=== PATIENT | male | born 1975 | race Hispanic/Latino ===

== ENCOUNTER 2020-07-26 08:09 | Emergency (ER) | payer OTHER ==
[2020-07-26 09:00] LABS: Absolute Lymphocytes (CBC) 1.7 K/uL (0.7-4.9); Basophils % 0.4 % (0-1.3); Hematocrit 43.6 % (39.6-49.0); Lymphocytes % 27.1 % (15.3-44.8); MPV 8.2 fL (7.6-11.3); RBC Red Blood Cell Count 4.56 M/uL (4.33-5.43)
[2020-07-26 09:01] LABS: Protime INR 0.89
--- NOTE | 2020-07-26 09:03 | RAD REPORT ---
EXAM DESCRIPTION: RAD - Chest Single View - 07/26/2020 8:40 am CLINICAL HISTORY: CHEST PAIN, recent COVID-19 diagnosis COMPARISON: None TECHNIQUE: AP portable chest image was obtained 07/26/2020 8:40 am . FINDINGS: No focal lung parenchymal process. No definitive evidence for COVID-19 pneumonia findings. Heart and vasculature are normal. No measurable pleural effusion and no pneumothorax. No acute bony abnormality seen. No acute aortic findings suspected. IMPRESSION: No acute cardiopulmonary process. No findings for COVID-19 pneumonia on this portable examination. If it would alter medical management , CT chest imaging could be performed for more sensitive assessment of the lung parenchyma.
[2020-07-26 09:35] LABS: ALT/SGPT 38 U/L (12-78); AST/SGOT 28 U/L (15-37); Albumin 3.8 g/dL (3.4-5.0); Alkaline Phosphatase 107 U/L (45-117); BUN Blood Urea Nitrogen 9 mg/dL (7-18); Bicarbonate 28 mmol/L (21-32); Bilirubin Direct < 0.1 mg/dL (0-0.2); Bilirubin Total 0.2 mg/dL (0.2-1.0); Glucose Level 163 mg/dL (74-106); NT PRO-BNP 11 pg/mL (<125); Potassium 3.8 mmol/L (3.5-5.1); Protein, Total 7.2 g/dL (6.4-8.2); Sodium Level 138 mmol/L (136-145); Troponin (Emerg Dept Use Only) < 0.02 ng/mL (0.0-0.045)
--- NOTE | 2020-07-26 09:41 | EDPHYS ---
Physician Documentation [facility] Name: Mir Pizarro Age: 45 yrs Sex: Male : 1975 Arrival Date: 07/26/2020 Time: 08:16 Bed 18 Private MD: ED Physician Jeremie Garcia HPI: 07/26 09:38 This 45 yrs old Male presents to ER via EMS with complaints of cough. ma2 09:38 The patient or guardian reports cough, difficulty breathing. Onset: The ma2 symptoms/episode began/occurred gradually, 2 day(s) ago. Severity of symptoms: At their worst the symptoms were moderate, in the emergency department the symptoms are unchanged. Associated signs and symptoms: Pertinent negatives: chest pain, diarrhea, fever, rhinorrhea, vomiting. The patient has not experienced similar symptoms in the past. Historical: - Allergies: 08:19 No Known Allergies; ss - Home Meds: 08:19 None [Active]; ss - PMHx: 08:19 None; ss - PSHx: 08:19 L knee repair; ss - Immunization history:: Adult Immunizations unknown. - Social history:: Smoking status: Patient denies any tobacco usage or history of. Patient/guardian denies using alcohol, street drugs, The patient lives with family. - Family history:: not pertinent. ROS: 09:38 Constitutional: Negative for fever, chills, and weight loss. ma2 09:38 All other systems are negative. Exam: 09:38 Constitutional: This is a well developed, well nourished patient who is awake, alert, ma2 and in no acute distress. Head/Face: Normocephalic, atraumatic. Eyes: Pupils equal round and reactive to light, extra-ocular motions intact. Lids and lashes normal. Conjunctiva and sclera are non-icteric and not injected. Cornea within normal limits. Periorbital areas with no swelling, redness, or edema. ENT: Nares patent. No nasal discharge, no septal abnormalities noted. Tympanic membranes are normal and external auditory canals are clear. Oropharynx with no redness, swelling, or masses, exudates, or evidence of obstruction, uvula midline. Mucous membranes moist. Neck: Trachea midline, no thyromegaly or masses palpated, and no cervical lymphadenopathy. Supple, full range of motion without nuchal rigidity, or vertebral point tenderness. No Meningismus. Chest/axilla: Normal chest wall appearance and motion. Nontender with no deformity. No lesions are appreciated. Cardiovascular: Regular rate and rhythm with a normal S1 and S2. No gallops, murmurs, or rubs. Normal PMI, no JVD. No pulse deficits. Respiratory: Lungs have equal breath sounds bilaterally, clear to auscultation and percussion. No rales, rhonchi or wheezes noted. No increased work of breathing, no retractions or nasal flaring. Abdomen/GI: Soft, non-tender, with normal bowel sounds. No distension or tympany. No guarding or rebound. No evidence of tenderness throughout. Back: No spinal tenderness. No costovertebral tenderness. Full range of motion. Skin: Warm, dry with normal turgor. Normal color with no rashes, no lesions, and no evidence of cellulitis. MS/ Extremity: Pulses equal, no cyanosis. Neurovascular intact. Full, normal range of motion. Neuro: Awake and alert, GCS 15, oriented to person, place, time, and situation. Cranial nerves II-XII grossly intact. Motor strength 5/5 in all extremities. Sensory grossly intact. Cerebellar exam normal. Normal gait. Vital Signs: 08:17 BP 170 / 92; Pulse 94; Resp 15; Temp 98.7(TE); Pulse Ox 100% on R/A; Height 5 ft. 3 in. ss (160.02 cm); Pain 0/10; MDM: 08:17 Patient medically screened. [facility] 09:38 Differential Diagnosis: Bronchitis Influenza Upper Respiratory Infection Sinusitis ma2 Pharyngitis. Data reviewed: vital signs, nurses notes, EMS record, EKG. Counseling: I had a detailed discussion with the patient and/or guardian regarding: the historical points, exam findings, and any diagnostic results supporting the discharge/admit diagnosis, the presence of at least one elevated blood pressure reading (>120/80) during this emergency department visit, the need for outpatient follow up. Response to treatment: the patient's symptoms have markedly improved after treatment. 07/26 08:18 Order name: Basic Metabolic Panel [facility] 07/26 08:18 Order name: CBC with Diff [facility] 07/26 08:18 Order name: LFT's 07/26 08:18 Order name: Magnesium ma2 07/26 08:18 Order name: NT PRO-BNP; Complete Time: 09:38 2 07/26 08:18 Order name: PT-INR; Complete Time: 09:24 07/26 08:18 Order name: Troponin (emerg Dept Use Only); Complete Time: 09:38 2 07/26 08:18 Order name: XRAY Chest (1 view); Complete Time: 09:24 2 07/26 08:18 Order name: EKG; Complete Time: 08:19 2 07/26 08:18 Order name: Cardiac monitoring; Complete Time: 08:44 ma2 07/26 08:18 Order name: Basic Metabolic Panel; Complete Time: 09:38 EDMS 07/26 08:18 Order name: CBC with Automated Diff; Complete Time: 09:24 EDMS 07/26 08:18 Order name: Liver (Hepatic) Function; Complete Time: 09:38 EDMS 07/26 08:18 Order name: Magnesium; Complete Time: 09:38 EDMS 07/26 08:18 Order name: EKG - Nurse/Tech; Complete Time: 08:44 2 07/26 08:18 Order name: IV Saline Lock; Complete Time: 08:44 2 07/26 08:18 Order name: Labs collected and sent; Complete Time: 08:44 07/26 08:18 Order name: O2 Per Protocol; Complete Time: 08:44 07/26 08:18 Order name: O2 Sat Monitoring; Complete Time: 08:44 ma2 Administered Medications: No medications were administered Disposition: 07/26/20 09:40 Discharged to Home. Impression: Coronavirus infection, unspecified. - Condition is Stable. - Discharge Instructions: Viral Respiratory Infection, Gugd-In-Pbyv, COVID-19. - Prescriptions for Zithromax Z- Tony 250 mg Oral Tablet - take 1 tablet by ORAL route as directed for 5 days Day 1 - take two (2) tablets one time. Day 2, 3, 4 , 5 take one (1) tablet once daily.; 6 tablet. Medrol (Tony) 4 mg Oral Tablets, Dose Pack - take 1 tablet by ORAL route as directed - follow package instructions; 1 packet. Albuterol Sulfate 90 mcg/actuation - inhale 1-2 puff by INHALATION route every 4-6 hours; 1 Inhaler. - Medication Reconciliation Form, Thank You Letter, Antibiotic Education, Prescription Opioid Use form. - Follow up: Private Physician; When: Tomorrow; Reason: If symptoms return, Continuance of care. Signatures: Dispatcher [employer] EDWI Stephanie Miller RN RN ss Jeremie Garcia MD MD ma2 Corrections: (The following items were deleted from the chart) 10:02 09:40 07/26/2020 09:40 Discharged to Home. Impression: Coronavirus infection, ss unspecified. Condition is Stable. Discharge Instructions: COVID-19. Prescriptions for Zithromax Z-Tony 250 mg Oral Tablet - take 1 tablet by ORAL route as directed for 5 days Day 1 - take two (2) tablets one time. Day 2, 3, 4 , 5 take one (1) tablet once daily.; 6 tablet, Medrol (Tony) 4 mg Oral Tablets, Dose Pack - take 1 tablet by ORAL route as directed - follow package instructions; 1 packet, Albuterol Sulfate 90 mcg/actuation - inhale 1-2 puff by INHALATION route every 4-6 hours; 1 Inhaler. and Forms are Medication Reconciliation Form, Thank You Letter, Antibiotic Education, Prescription Opioid Use. Follow up: Private Physician; When: Tomorrow; Reason: If symptoms return, Continuance of care. ma2
--- NOTE | 2020-07-26 09:41 | ER ---
Nurse's Notes [facility] Name: Mir Pizarro Age: 45 yrs Sex: Male : 1975 Arrival Date: 07/26/2020 Time: 08:16 Bed 18 Private MD: Diagnosis: Coronavirus infection, unspecified Presentation: 07/26 08:17 Chief complaint: Patient states: Woke up this morning feeling as if his heart was ss beating slow. Denies pain. Pt reports he was diagnosed with COVID-19 on 07/18/20. Coronavirus screen: Client denies travel out of the [place] in the last 14 days. Ebola Screen: Patient denies exposure to infectious person. Patient denies travel to an Ebola-affected area in the 21 days before illness onset. Initial Sepsis Screen: Does the patient meet any 2 criteria? No. Patient's initial sepsis screen is negative. Does the patient have a suspected source of infection? No. Patient's initial sepsis screen is negative. Risk Assessment: Do you want to hurt yourself or someone else? Patient reports no desire to harm self or others. Onset of symptoms was July 26, 2020. Care prior to arrival: Medication(s) given: ASA, 325 mg. 08:17 Method Of Arrival: EMS: [facility] ss 08:17 Acuity: QUOC 3 ss Historical: - Allergies: 08:19 No Known Allergies; ss - Home Meds: 08:19 None [Active]; ss - PMHx: 08:19 None; ss - PSHx: 08:19 L knee repair; ss - Immunization history:: Adult Immunizations unknown. - Social history:: Smoking status: Patient denies any tobacco usage or history of. Patient/guardian denies using alcohol, street drugs, The patient lives with family. - Family history:: not pertinent. Screenin:59 Abuse screen: Denies threats or abuse. Denies injuries from another. Nutritional ss screening: No deficits noted. Tuberculosis screening: Never had TB. Fall Risk None identified. Assessment: 09:59 Reassessment: Patient appears in no apparent distress at this time. Patient and/or ss family updated on plan of care and expected duration. Pain level reassessed. Patient is alert, oriented x 3, equal unlabored respirations, skin warm/dry/pink. Patient states feeling better. Patient states symptoms have improved. Vital Signs: 08:17 BP 170 / 92; Pulse 94; Resp 15; Temp 98.7(TE); Pulse Ox 100% on R/A; Height 5 ft. 3 in. ss (160.02 cm); Pain 0/10; ED Course: 08:16 Patient arrived in ED. 08:17 Jeremie Garcia MD is Attending Physician. ma2 08:18 Triage completed. 08:19 Arm band placed on right wrist. ss 08:39 XRAY Chest (1 view) In Process Unspecified. EDMS 08:44 Stephanie Miller, RN is Primary Nurse. 08:44 Inserted saline lock: 20 gauge in right antecubital area, using aseptic technique. Blood collected. 08:51 Patient has correct armband on for positive identification. Bed in low position. Call 5 light in reach. Side rails up X2. Warm blanket given. monitor worker on. Pulse ox on. NIBP on. 08:51 EKG done, by ED staff, reviewed by Jeremie Garcia MD. [facility] 09:49 IV discontinued, intact, bleeding controlled, No redness/swelling at site. Pressure em1 dressing applied. 09:59 No provider procedures requiring assistance completed. Administered Medications: No medications were administered Outcome: 09:40 Discharge ordered by . ma2 10:00 Discharged to home ambulatory. 10:00 Condition: good 10:00 Discharge instructions given to patient, Instructed on discharge instructions, follow up and referral plans. medication usage, Demonstrated understanding of instructions, follow-up care, medications, Prescriptions given X 2. 10:02 Patient left the ED. Signatures: Dispatcher [employer] Syed Dillon em1 Stephanie Miller, Raissa Hernandez RN 5 Jeremie Garcia MD MD ma2
[2020-07-26 10:08] VITALS: BP 170/92; TEMP 98.7; O2SAT 100
--- NOTE | 2020-07-26 12:40 | EKG ---
Test Date: 2020-07-26 Test Time: 08:28:03 [employer] Equipment Specialist: PURNIMA MEASUREMENT RESULTS: Intervals: Rate: 67 MD: 156 QRSD: 94 QT: 362 QTc: 382 [place]: P: 56 MD: 156 QRS: 65 T: 56 INTERPRETIVE STATEMENTS: Sinus rhythm with marked sinus arrhythmia Incomplete right bundle branch block Borderline ECG No previous ECG available for comparison Electronically Signed On 07-26-20 12:39:42 [employer] by Vishal Arce
== END 2020-07-26 10:02 | disposition home or self-care (01) ==
LOC: ER 08:09
DX: U07.1 COVID-19 (principal)
CPT/HCPCS: 36415; 71045; 80048; 80076; 83735; 83880; 84484; 85025; 85610; 93005; 99284

== ENCOUNTER 2021-12-23 21:57 | Emergency (ER) | payer OTHER ==
--- OUTSIDE RECORDS SUMMARY | 2021-12-23 22:02 | XMS REPORT | Continuity of Care Document ---
:[address] [facility] t Address [address] [place] [address] Care Team Providers Name Role Phone RADIOLOGY Attending Clinician Unavailable Pc, Adc Echo Room 1 - Attending Clinician Unavailable Latasha HERNANDEZ, K.H. Attending Clinician Doctor Unassigned, Name Attending Clinician Unavailable Sera PAGAN Attending Clinician Unavailable Payers Payer Name Policy Type Policy Number Effective Date Expiration Date S ource Problems This patient has no known problems. Allergies, Adverse Reactions, Alerts Allergy Allergy Status Severity Reaction(s) Onset Inactive Treating Comm ents Source Name Type Date Date Clinician NO KNOWN Drug Active Univers ALLERGIE Class ity of [facility] Social History Social Habit Start Date Stop Date Quantity Comments Source Exposure to Not sure [facility] SARS-CoV-2 (event) Medica l [place] Tobacco use and 2020-08-11 2020-08-11 Never used [facility] exposure 00:00:00 00:00:00 [facility] Sex [birth year] [facility] 00:00:00 00:00:00 [facility] Smoking Status Start Date Stop Date Source Never smoker [facility] Medications Ordered Filled Start Stop Current Ordering Indication Dosage Frequency Signature Comments Components Source Medication Medication Date Date Medication? Clinician (SIG) Name Name gemfibroziL Yes 600mg Take 600 U nivers 600 mg 2-12 mg by ity of tablet 00:00: mouth 2 [place] (two) Medical times Shell daily. gemfibroziL 2020-0 Yes 600mg Take 600 U nivers 600 mg 2-12 mg by ity of tablet 00:00: mouth 2 [place] (two) Medical times Shell daily. gemfibroziL 2020-0 Yes 600mg Take 600 U nivers 600 mg 2-12 mg by ity of tablet 00:00: mouth 2 (two) Medical times Branch daily. gemfibroziL 2021-0 Yes 600mg Take 600 U nivers 600 mg 2-12 mg by ity of tablet 00:00: mouth 2 (two) Medical times Branch daily. gemfibroziL 2021-0 Yes 600mg Take 600 U nivers 600 mg 2-12 mg by ity of tablet 00:00: mouth 2 (two) Medical times Branch daily. gemfibroziL 2021-0 Yes 600mg Take 600 U nivers 600 mg 2-12 mg by ity of tablet 00:00: mouth 2 (two) Medical times Branch daily. gemfibroziL 2021-0 Yes 600mg Take 600 U nivers 600 mg 2-12 mg by ity of tablet 00:00: mouth 2 [place] (two) Medical times Branch daily. gemfibroziL 2021-0 Yes 600mg Take 600 U nivers 600 mg 2-12 mg by ity of tablet 00:00: mouth 2 (two) Medical times Branch daily. albuterol 0 Yes INHALE 1 Univ ers 90 1-27 TO 2 PUFFS ity of mcg/actuati 00:00: EVERY 4 TO [place] on inhaler 00 6 HOURS Medica l Branch albuterol 0 Yes INHALE 1 Univ ers 90 1-27 TO 2 PUFFS ity of mcg/actuati 00:00: EVERY 4 TO [place] on inhaler 00 6 HOURS Medica l Branch albuterol 2020-0 Yes INHALE 1 Univ ers 90 1-27 TO 2 PUFFS ity of mcg/actuati 00:00: EVERY 4 TO [place] on inhaler 00 6 HOURS Medica l Branch albuterol 2020-0 Yes INHALE 1 Univ ers 90 1-27 TO 2 PUFFS ity of mcg/actuati 00:00: EVERY 4 TO [place] on inhaler 00 6 HOURS Medica l Branch albuterol 2020-0 Yes INHALE 1 Univ ers 90 1-27 TO 2 PUFFS ity of mcg/actuati 00:00: EVERY 4 TO [place] on inhaler 00 6 HOURS Medica l Branch albuterol 2020-0 Yes INHALE 1 Univ ers 90 1-27 TO 2 PUFFS ity of mcg/actuati 00:00: EVERY 4 TO [place] on inhaler 00 6 HOURS Medica l Branch albuterol 0 Yes INHALE 1 Univ ers 90 1-27 TO 2 PUFFS ity of mcg/actuati 00:00: EVERY 4 TO [place] on inhaler 00 6 HOURS Medica l Branch albuterol 0 Yes INHALE 1 Univ ers 90 1-27 TO 2 PUFFS ity of mcg/actuati 00:00: EVERY 4 TO [place] on inhaler 00 6 HOURS Medica l Branch albuterol 0 Yes INHALE 1 Univ ers 90 1-27 TO 2 PUFFS ity of mcg/actuati 00:00: EVERY 4 TO [place] on inhaler 00 6 HOURS Medica l Branch albuterol Yes INHALE 1 Univ ers 90 1-27 TO 2 PUFFS ity of mcg/actuati 00:00: EVERY 4 TO [place] on inhaler 00 6 HOURS Medica l Branch albuterol 0 Yes INHALE 1 Univ ers 90 1-27 TO 2 PUFFS ity of mcg/actuati 00:00: EVERY 4 TO [place] on inhaler 00 6 HOURS Medica l Branch albuterol 0 Yes INHALE 1 Univ ers 90 1-27 TO 2 PUFFS ity of mcg/actuati 00:00: EVERY 4 TO [place] on inhaler 00 6 HOURS Medica l Branch diclofenac 2017-0 Yes 75mg Take 1 Unive rs 75 mg EC 1-17 tablet by ity of tablet 00:00: mouth 2 [place] 00 (two) Medical times Branch daily with meals. diclofenac 2020- No 75mg Take 1 Univ ers 75 mg EC 117 -12 tablet by ity o f tablet 00:00: 00:00 mouth 2 [place] 00 :00 (two) Medical times Branch daily with meals. diclofenac 2017-2020- No 75mg Take 1 Univ ers 75 mg EC 1-17 -12 tablet by ity o f tablet 00:00: 00:00 mouth 2 [place] 00 :00 (two) Medical times Branch daily with meals. diclofenac 2017-2020- No 75mg Take 1 Univ ers 75 mg EC 1-17 -12 tablet by ity o f tablet 00:00: 00:00 mouth 2 [place] 00 :00 (two) Medical times Branch daily with meals. methylPREDN 2016-06 Yes 84mg Take 21 Uni vers ISolone 2-21 tablets by ity of (MEDROL, 00:00: mouth [place] JOAN,) 4 mg 00 SEE-INSTRU Med ical tablets CTIONS. Branch follow package directions methylPREDN 2016-06 No 84mg Take 21 Un chucho ISolone 2-21 02-12 tablets by ity o f (MEDROL, 00:00: 00:00 mouth [place] JOAN,) 4 mg 00 :00 SEE-INSTRU Med ical tablets CTIONS. Branch follow package directions methylPREDN 2016-06 No 84mg Take 21 Un chucho ISolone 2-21 02-12 tablets by ity o f (MEDROL, 00:00: 00:00 mouth [place] JOAN,) 4 mg 00 :00 SEE-INSTRU Med ical tablets CTIONS. Branch follow package directions methylPREDN 2016-06 No 84mg Take 21 Un chucho ISolone 2-21 02-12 tablets by ity o f (MEDROL, 00:00: 00:00 mouth [place] JOAN,) 4 mg 00 :00 SEE-INSTRU Med ical tablets CTIONS. Branch follow package directions acetaminoph 2016-06 Yes TAKE 1 TO U nivers en-codeine 1-08 2 TABLETS ity of 300-30 mg 00:00: EVERY 6 [place] tablet 00 HOURS Medical NEEDED FOR Branch PAIN acetaminoph 2016-06- No TAKE 1 TO Univers en-codeine 07-07-12 2 TABLETS ity of 300-30 mg 00:00: 00:00 EVERY 6 [place] tablet 00 :00 HOURS Medical NEEDED FOR Branch PAIN acetaminoph 2016-06- No TAKE 1 TO Univers en-codeine 07-07 2 TABLETS ity of 300-30 mg 00:00: 00:00 EVERY 6 [place] tablet 00 :00 HOURS Medical NEEDED FOR Branch PAIN acetaminoph 2016-06- No TAKE 1 TO Univers en-codeine 07-07- 2 TABLETS ity of 300-30 mg 00:00: 00:00 EVERY 6 [place] tablet 00 :00 HOURS Medical NEEDED FOR Branch PAIN meloxicam Yes TAKE 1 Univer s 7.5 mg 9-19 TABLET ity of tablet 00:00: EVERY DAY [place] 00 WITH FOOD Medical Branch meloxicam 2020- No TAKE 1 Unive rs 7.5 mg 03-18 TABLET ity of tablet 00:00: 00:00 EVERY DAY [place] 00 :00 WITH [facility] meloxicam 2020- No TAKE 1 Unive rs 7.5 mg 908-11 TABLET ity of tablet 00:00: 00:00 EVERY DAY [place] 00 :00 WITH [facility] meloxicam 2020- No TAKE 1 Unive rs 7.5 mg 03-18 TABLET ity of tablet 00:00: 00:00 EVERY DAY [place] 00 :00 WITH [facility] Vital Signs Vital Name Observation Time Observation Value Comments Source Systolic blood 2020-09-01 14:12:00 138 mm[Hg] Univer sity of [facility] Diastolic blood 2020-09-01 14:12:00 80 mm[Hg] Unive rsity of [facility] Heart rate 2020-09-01 14:12:00 55 /min Univers ty [facility] Body height 2020-09-01 14:12:00 165.1 cm Universi ty [facility] Body weight 2020-09-01 14:12:00 [facility] 2020-09-01 14:12:00 22.30 kg/m2 [facility] Systolic blood 2020-08-29 14:07:00 126 mm[Hg] Univer sity of [facility] Diastolic blood 2020-08-29 14:07:00 84 mm[Hg] Unive rsity of [facility] Body height 2020-08-29 14:07:00 165.1 cm Universi ty [facility] Body weight 2020-08-29 14:07:00 60.782 kg Univers ty [facility] BMI 2020-08-29 14:07:00 22.30 [facility] Systolic blood 2020-08-11 15:46:00 133 mm[Hg] Univer sity of [facility] Diastolic blood 2020-08-11 15:46:00 84 mm[Hg] Unive rsity of [facility] Heart rate 2020-08-11 15:46:00 81 /min [facility] Respiratory rate 2020-08-11 15:46:00 19 /min [facility] Body height 2020-08-11 15:46:00 165.1 cm [facility] Body weight 2020-08-11 15:46:00 60.782 kg [facility] BMI 2020-08-11 15:46:00 22.30 kg/m2 [facility] Oxygen saturation in 2020-08-11 15:46:00 99 /min [facility] Arterial blood by [facility] Pulse oximetry Branch Procedures Procedure Date / Time Performed Performing Clinician Sour e DISCLOSURE AND 2020-08-29 06:01:00 Doctor Unassigned, No Univer [facility] CONSENT, MEDICAL AND Name Medical [facility] SURGICAL PROCEDURES EXTERNAL PROVIDER - 2020-08-21 06:01:00 Doctor Unassigned, No Un iversity of [facility] CARDIOLOGY Name Medical Branch ME ELECTROCARDIOGRAM, 2020-08-11 15:50:15 [facility]REFUSAL FOR 2020-08-11 14:58:15 Doctor Unassigned, No [facility] [place] DIAGNOSIS AND Name Medical Branch TREATMENT Encounters Start End Encounter Admission Attending Care Care Encounter Source Date/Time Date/Time Type Type Clinicians Facility Department ID 2021-04-06 2021-04-06 Outpatient R RADIOLOGY [facility] [id number] Univers 14:30:00 14:30:00 [id number] ity [facility] 2020-09-01 2020-09-01 Laboratory Pc, Adc Echo Room 1 - [facility] [id number] Univers 08:03:58 09:03:58 Only Mark Pagan [place] [id number] [facility] [place] [id number] Jacob Mcleod [phone] Ia dical [facility] 059 Branch [facility] 2020-09-01 2020-09-01 Outpatient R [facility] [id number] Univers 08:00:00 08:00:00 [id number] ity [facility] 2020-09-01 2020-09-01 Outpatient R [facility] [id number] Univers 08:00:00 08:00:00 ity of [facility] 2020-08-30 2020-08-30 Telephone Pagan [facility] [id number] Univers 00:00:00 00:00:00 Mark [place] [id number] ity of [id number] [phone] Ia dical nal [address] [place] [address] 2020-08-29 2020-08-29 Laboratory Pc, Adc Echo Room 1 - [facility] [id number] Univers 07:58:40 08:57:34 Only Mark Pagan [id number] ity of [id number] [phone] Ia dical nal [address] [place] [address] 2020-08-29 2020-08-29 Outpatient R [facility] [id number] Univers 08:00:00 08:00:00 [id number] ity of [facility] 2020-08-29 2020-08-29 Outpatient R [facility] [id number] Univers 08:00:00 08:00:00 ity of [facility] 2020-08-29 2020-08-29 Orders Doctor KEANE [id number] Univers 00:00:00 00:00:00 Only Unassigned, MAURO [id number] ity of [facility] [id number] Ayo as [phone] [address] 2020-08-28 2020-08-28 Outpatient R [facility] [id number] Univers 08:00:00 08:00:00 [id number] ity of [facility] 2020-08-28 2020-08-28 Outpatient R [facility] [id number] Univers 08:00:00 08:00:00 ity of [facility] 2020-08-21 2020-08-21 Orders Doctor LAKHWINDER [id number] Univers 00:00:00 00:00:00 Only Unassigned, MAURO [id number] ity of [facility] [id number] Ayo as [phone] [facility] 009 [place] 2020-08-11 2020-08-11 Office Latasha [facility] [id number] Univers 08:58:45 10:09:51 Visit Sendil Sera [place] [id number] ity of [id number] [phone] Ia dical [facility] 2020-08-11 2020-08-11 Outpatient R LATASHA [facility] [id number] Univers 09:30:00 09:30:00 SENDIL [id number] ity [facility] 2020-08-11 2020-08-11 Outpatient R LATASHA [facility] [id number] Univers 09:30:00 09:30:00 SENDIL ity [facility] 2020-08-11 2020-08-11 Orders Doctor KEANE [id number] Univers 00:00:00 00:00:00 Only Unassigned, MAURO [id number] ity of [facility] [id number] Ayo as [phone] [address] Results This patient has no known results.
[2021-12-24 01:15] LABS: Urine Blood Negative (Negative); Urine Glucose Negative (Negative); Urine Protein Negative (Negative)
--- NOTE | 2021-12-24 05:09 | ER ---
Nurse's Notes [facility] Name: Mir Pizarro Age: 46 yrs Sex: Male : 1975 Arrival Date: 12/23/2021 Time: 22:02 Bed 9 Private MD: Diagnosis: Low back pain-Strain;Viral syndrome Presentation: 12/23 22:47 Chief complaint: Patient states: "I have pain in my mid backs. I was tested for covid vc1 at [facility] and it said negative they gave me an antibiotic for a sore throat. My throat still hurts.". Coronavirus screen: Vaccine status: Patient reports receiving the 2nd dose of the covid vaccine. Moderna cough unrelated to allergies, fatigue, fever, muscle pain, runny nose, sore throat, Client presents with at least one sign or symptom that may indicate coronavirus-19. Standard/surgical mask placed on the client. Provider contacted for isolation considerations. Ebola Screen: No symptoms or risks identified at this time. Initial Sepsis Screen: Does the patient meet any 2 criteria? No. Patient's initial sepsis screen is negative. Does the patient have a suspected source of infection? No. Patient's initial sepsis screen is negative. Risk Assessment: Do you want to hurt yourself or someone else? Patient reports no desire to harm self or others. Onset of symptoms is unknown. 22:47 Method Of Arrival: Ambulatory vc1 22:47 Acuity: QUOC 4 vc1 Triage Assessment: 22:51 General: Appears in no apparent distress. uncomfortable, ill, Behavior is calm, vc1 cooperative, appropriate for age. Pain: Complains of pain in back Pain does not radiate. Pain currently is 3 out of 10 on a pain scale. at worst was 6 out of 10 on a pain scale. Neuro: Level of Consciousness is awake, alert, obeys commands, Oriented to person, place, time, situation, Appropriate for age. Cardiovascular: No deficits noted. Respiratory: Reports cough that is productive, Airway is patent Respiratory effort is even, unlabored, Respiratory pattern is regular, symmetrical. GI: No deficits noted. : No deficits noted. Derm: No deficits noted. Musculoskeletal: Circulation, motion, and sensation intact. Capillary refill Range of motion: intact in all extremities. Historical: - Allergies: 22:51 No Known Allergies; vc1 - PMHx: 22:51 None; vc1 - PSHx: 22:51 None; vc1 - Immunization history:: Adult Immunizations up to date, Client reports receiving the 2nd dose of the Covid vaccine. - Social history:: Smoking status: Patient denies any tobacco usage or history of. Screenin/27 03:11 Abuse screen: Denies threats or abuse. Nutritional screening: No deficits noted. bb Tuberculosis screening: No symptoms or risk factors identified. Fall Risk None identified. Assessment: 03:11 General: Appears in no apparent distress. slender, Behavior is calm, cooperative. Pain: bb Complains of pain in back. Neuro: Level of Consciousness is awake, alert, obeys commands, Oriented to person, place, time, situation. Cardiovascular: Capillary refill < 3 seconds Patient's skin is warm and dry. Respiratory: Respiratory effort is even, unlabored, Respiratory pattern is regular. GI: Derm: Skin is pink, warm \\T\\ dry. Musculoskeletal: Circulation, motion, and sensation intact. Reports pain in back. Vital Signs: 12/23 22:47 BP 167 / 92; Pulse 87; Resp 18; Temp 98.7; Pulse Ox 100% ; Weight 58.97 kg; Height 5 vc1 ft. 7 in. (170.18 cm); Pain 2/10; 22:47 Body Mass Index 20.36 (58.97 kg, 170.18 cm) vc1 ED Course: 22:02 Patient arrived in ED. bp1 22:51 Triage completed. vc1 22:53 Arm band placed on left wrist. vc1 22:55 Influenza Screen (A Sent. zm 22:55 Strep Sent. zm 22:55 Flu Sent. zm 23:00 COVID-19 SARS RT PCR (Document "Date of Onset" if Symptomatic) Sent. zm 12/24 00:54 Jaret Cardoso MD is Attending Physician. mh7 01:14 Urine collected: clean catch specimen, clear, COVID swab sent to lab. Flu and/or RSV mh5 swab sent to lab. 02:05 Chest Single View XRAY In Process Unspecified. EDMS 02:17 CT Lumbar Spine Wo Con In Process Unspecified. EDMS 02:53 Joy Pantoja, KHLOE is Primary Nurse. bb 03:11 Patient has correct armband on for positive identification. Call light in reach. bb 05:14 No provider procedures requiring assistance completed. Patient did not have IV access vc1 during this emergency room visit. Administered Medications: No medications were administered Medication: 05:15 VIS not applicable for this client. vc1 Outcome: 05:08 Discharge ordered by . jf 05:15 Discharged to home ambulatory. vc1 05:15 Condition: good 05:15 Discharge instructions given to patient, Instructed on discharge instructions, follow up and referral plans. medication usage, Demonstrated understanding of instructions, follow-up care, medications, Prescriptions given X 2. 05:16 Patient left the ED. vc1 Signatures: Dispatcher [employer] EDMS Joy Pantoja RN RN bb Raissa Perry 5 Gloria Campoverde Maurice, MD MD mh7 Corrine Keating RN RN vc1 Danni Perry
--- NOTE | 2021-12-24 05:09 | EDPHYS ---
Physician Documentation [facility] Name: Mir Pizarro Age: 46 yrs Sex: Male : 1975 Arrival Date: 12/23/2021 Time: 22:02 Bed 9 Private MD: ED Physician Jaret Cardoso HPI: 12/24 01:25 This 46 yrs old Male presents to ER via Ambulatory with complaints of Back mh7 Pain. 01:25 The patient presents with pain that is acute. The symptoms are located in the low back. mh7 01:25 Onset: The symptoms/episode began/occurred yesterday. mh7 01:25 The pain does not radiate. Associated signs and symptoms: Pertinent negatives: mh7 abdominal pain, chest pain, constipation, dysuria, fever, headache, hematuria, incontinence, nausea, numbness, tingling, urinary retention, vomiting, weakness. The problem was sustained when bending over, when lifting heavy object. Modifying factors: The patient symptoms are alleviated by nothing, the patient symptoms are aggravated by movement, walking. Severity of symptoms: At their worst the symptoms were moderate, yesterday, in the emergency department the symptoms have improved, moderately. Also complains of sore throat for the 4-5 days. States that he was seen at an urgent care 2 days ago and tested negative for COVID and was started on an antibiotic for his throat.. Historical: - Allergies: 12/23 22:51 No Known Allergies; vc1 - PMHx: 22:51 None; vc1 - PSHx: 22:51 None; vc1 - Immunization history:: Adult Immunizations up to date, Client reports receiving the 2nd dose of the Covid vaccine. - Social history:: Smoking status: Patient denies any tobacco usage or history of. ROS: 12/24 01:25 Constitutional: Negative for fever, chills, and weight loss, Eyes: Negative for injury, mh7 pain, redness, and discharge, Neck: Negative for injury, pain, and swelling, Cardiovascular: Negative for chest pain, palpitations, and edema, Respiratory: Negative for shortness of breath, cough, wheezing, and pleuritic chest pain, Abdomen/GI: Negative for abdominal pain, nausea, vomiting, diarrhea, and constipation, : Negative for injury, bleeding, discharge, and swelling, MS/Extremity: Negative for injury and deformity, Skin: Negative for injury, rash, and discoloration, Neuro: Negative for headache, weakness, numbness, tingling, and seizure, Psych: Negative for depression, anxiety, suicide ideation, homicidal ideation, and hallucinations, Allergy/Immunology: Negative for hives, rash, and allergies, Endocrine: Negative for neck swelling, polydipsia, polyuria, polyphagia, and marked weight changes, Hematologic/Lymphatic: Negative for swollen nodes, abnormal bleeding, and unusual bruising. Exam: 01:25 Constitutional: This is a well developed, well nourished patient who is awake, alert, mh7 and in no acute distress. Head/Face: Normocephalic, atraumatic. Eyes: Pupils equal round and reactive to light, extra-ocular motions intact. Lids and lashes normal. Conjunctiva and sclera are non-icteric and not injected. Cornea within normal limits. Periorbital areas with no swelling, redness, or edema. Neck: Trachea midline, no thyromegaly or masses palpated, and no cervical lymphadenopathy. Supple, full range of motion without nuchal rigidity, or vertebral point tenderness. No Meningismus. Chest/axilla: Normal chest wall appearance and motion. Nontender with no deformity. No lesions are appreciated. Cardiovascular: Regular rate and rhythm with a normal S1 and S2. No gallops, murmurs, or rubs. Normal PMI, no JVD. No pulse deficits. Respiratory: Lungs have equal breath sounds bilaterally, clear to auscultation and percussion. No rales, rhonchi or wheezes noted. No increased work of breathing, no retractions or nasal flaring. Abdomen/GI: Soft, non-tender, with normal bowel sounds. No distension or tympany. No guarding or rebound. No evidence of tenderness throughout. Skin: Warm, dry with normal turgor. Normal color with no rashes, no lesions, and no evidence of cellulitis. MS/ Extremity: Pulses equal, no cyanosis. Neurovascular intact. Full, normal range of motion. Neuro: Awake and alert, GCS 15, oriented to person, place, time, and situation. Cranial nerves II-XII grossly intact. Motor strength 5/5 in all extremities. Sensory grossly intact. Cerebellar exam normal. Normal gait. Psych: Awake, alert, with orientation to person, place and time. Behavior, mood, and affect are within normal limits. 01:25 Back: pain, that is moderate, of the lumbar area, left low back and right low back, ROM is painful, with rotation to the right, with rotation to the left, normal spinal alignment noted, CVA tenderness, is absent, vertebral tenderness, is not appreciated, muscle spasm, is appreciated in the lumbar area, left low back and right low back, Straight leg raises: of both lower extremities does not illicit pain. Vital Signs: 12/23 22:47 BP 167 / 92; Pulse 87; Resp 18; Temp 98.7; Pulse Ox 100% ; Weight 58.97 kg; Height 5 vc1 ft. 7 in. (170.18 cm); Pain 210; 22:47 Body Mass Index 20.36 (58.97 kg, 170.18 cm) vc1 MDM: 12/24 05:05 Differential diagnosis: arthritis, Fatigue Fracture Osteoarthritis Pyelonephritis mh7 sprain, vertebral fracture. Data reviewed: vital signs, nurses notes, lab test result(s), Flu: negative radiologic studies, CT scan, plain films. Data interpreted: Pulse oximetry: on room air is 100 %. Interpretation: normal. Counseling: I had a detailed discussion with the patient and/or guardian regarding: the historical points, exam findings, and any diagnostic results supporting the discharge/admit diagnosis, the presence of at least one elevated blood pressure reading (>120/80) during this emergency department visit, lab results, radiology results, the need for outpatient follow up, to return to the emergency department if symptoms worsen or persist or if there are any questions or concerns that arise at home. Response to treatment: the patient's symptoms have markedly improved after treatment. 05:08 Patient medically screened. [facility] 12/23 22:53 Order name: Flu; Complete Time: 00:58 [facility] 12/23 22:53 Order name: Strep; Complete Time: 00:58 [facility] 12/23 22:55 Order name: Influenza Screen (A ; Complete Time: 00:58 [facility] 12/23 22:56 Order name: COVID-19 SARS RT PCR (Document "Date of Onset" if Symptomatic) [facility] 12/23 23:56 Order name: Throat Culture [facility] 12/24 01:15 Order name: Urine Dipstick-Ancillary; Complete Time: 01:43 [facility] 12/24 01:44 Order name: CT Lumbar Spine Wo Con [facility] 12/24 01:44 Order name: Chest Single View XRAY [facility] Administered Medications: No medications were administered Disposition Summary: 12/24/21 05:08 Discharge Ordered Location: Home [facility] Problem: new [facility] Symptoms: have improved [facility] Condition: Stable [facility] Diagnosis - Low back pain - Strain [facility] - Viral syndrome [facility] Followup: [facility] - With: Private Physician - When: 1 - 2 days - Reason: Worsening of condition, Recheck today's complaints, Continuance of care, Re-evaluation by your physician Discharge Instructions: - Discharge Summary Sheet [facility] - Acute Back Pain, Adult [facility] - Musculoskeletal Pain [facility] - Back Injury Prevention, [id number] [facility] - Viral Illness, Adult [facility] Forms: - Medication Reconciliation Form [facility] - Thank You Letter [facility] - Antibiotic Education [facility] - Prescription Opioid Use [facility] Prescriptions: - Cyclobenzaprine 10 mg Oral Tablet - take 1 tablet by ORAL route every 8 hours As needed; 30 tablet; Refills: 0, [facility] Product Selection Permitted - Diclofenac Sodium 75 mg Oral Tablet Sustained Release - take 1 tablet by ORAL route 2 times per day; 30 tablet; Refills: 0, Product [facility] Selection Permitted Signatures: Dispatcher [employer] Jaret Portillo MD MD [facility] Corrine Keating RN RN vc1
[2021-12-24 05:21] VITALS: BP 167/92; TEMP 98.7; O2SAT 100
--- NOTE | 2021-12-24 20:27 | RAD REPORT ---
EXAM DESCRIPTION: RAD - Chest Single View - 12/24/2021 2:03 am CLINICAL HISTORY: 46 years Male, COUGH COMPARISON: None. TECHNIQUE: Single portable x-ray view of the chest performed on 12/24/2021 at 1:55 AM FINDINGS: The lungs are well expanded and are clear. There is no evidence of a pneumothorax. The cardiac silhouette is normal in size and configuration. The mediastinal contours are normal. No acute osseous abnormality is identified. No acute soft tissue abnormalities are seen. Lines and tubes: None. Free air: None IMPRESSION: No evidence of acute intrathoracic disease. Electronically signed by: Liseth Moreno DO 12/24/2021 3:12 AM CDT Due to temporary technical issues with the PACS/Fluency reporting system, reports are being signed by the in house radiologists without. review as a courtesy to insure prompt reporting. The interpreting radiologist is fully responsible for the content of the report
--- NOTE | 2021-12-24 20:28 | RAD REPORT ---
EXAM DESCRIPTION: CT - Spine Lumbar Wo Con - 12/24/2021 6:22 am CLINICAL HISTORY: Low back pain, no red flags, no prior management COMPARISON: None. TECHNIQUE: CT LUMBAR SPINE WITHOUT IV CONTRAST on 12/24/2021 1:44 AM CDT This exam was performed according to our departmental dose-optimization program, which includes autom ated exposure control, adjustment of the mA and/or kV according to patient size and/or use of iterati ve reconstruction technique. FINDINGS: There is no acute fracture. Vertebral body heights are preserved. Alignment is anatomic. Disc spaces are maintained. Soft tissues are unremarkable. IMPRESSION: No acute fracture or subluxation. Electronically signed by: Buck Alvarez MD 12/24/2021 3:16 AM CDT Due to temporary technical issues with the PACS/Fluency reporting system, reports are being signed by the in house radiologists without. review as a courtesy to insure prompt reporting. The interpreting radiologist is fully responsible for the content of the report
== END 2021-12-24 05:16 | disposition home or self-care (01) ==
LOC: ER 21:57
DX: S39.012A Strain of muscle, fascia and tendon of lower back, initial encounter (principal); B34.9 Viral infection, unspecified; Z20.822 Contact with and (suspected) exposure to COVID-19
CPT/HCPCS: 87070; 87081; 81003; 87804 ×2; 72131; 71045; U0003; 99283

== ENCOUNTER 2023-07-24 15:28 | Inpatient (IN) | payer OTHER ==
--- OUTSIDE RECORDS SUMMARY | 2023-07-24 15:31 | XMS REPORT | Continuity of Care Document ---
Author Name Unknown Address [address] [place] [address] [facility] Address [address] [place] [address] Care Team Providers Care Medical Donation Professional Name Role Phone Pc, Adc Echo Room 1 - Attending Clinician Cate Pagan MD, [facility] Attending Clinician Doctor Unassigned, [place] Attending Clinician MARK Fernando.HAshley Attending Clinician Unavaila ble Payers Payer Name Policy Type Policy Number Effective Date Expirati on Date Source Allergies, Adverse Reactions, Alerts Allergy Name Allergy Type Status Severity Reaction(s) Onset Date Inactive Date Treating Clinician Comments Source NO KNOWN ALLERGIE S Drug Class Active [facility] Social History Social Habit Start Date Stop Date Quantity Comments Source Exposure to SARS-CoV-2 (event) Not sure [facility] Tobacco use and exposure 2020-08-11 00:00:00 2020-08-11 00:00:00 Never used [facility] Sex Assigned At 1975 00:00:00 1975 00:00:00 [facility] Smoking Status Start Date Stop Date Source Never smoker [facility] Medications Ordered Medication Name Filled Medication Name Start Date Stop Date Current Medication? Ordering Clinician Indication Dosage Frequency Signature (SIG) Comments Components Source gemfibroziL 600 mg tablet 08-11 00:00: 00 Yes 600mg Take 600 mg by mouth 2 (two) times daily. [facility] gemfibroziL 600 mg tablet 08-11 00:00: 00 Yes 600mg Take 600 mg by mouth 2 (two) times daily. [facility] tablet 0 2-12 00:00: 00 Yes 600mg Take 600 mg by mouth 2 (two) times daily. [facility] gemfibroziL 600 mg tablet 2-12 00:00: 00 Yes 600mg Take 600 mg by mouth 2 (two) times daily. [facility] gemfibroziL 600 mg tablet 2-12 00:00: 00 Yes 600mg Take 600 mg by mouth 2 (two) times daily. [facility] gemfibroziL 600 mg tablet 2 00:00: 00 Yes 600mg Take 600 mg by mouth 2 (two) times daily. [facility] gemfibroziL 600 mg tablet 08-11 00:00: 00 Yes 600mg Take 600 mg by mouth 2 (two) times daily. [facility] gemfibroziL 600 mg tablet 08-11 00:00: 00 Yes 600mg Take 600 mg by mouth 2 (two) times daily. [facility] albuterol 90 mcg/actuati on inhaler 07-26 00:00: 00 Yes INHALE 1 TO 2 PUFFS EVERY 4 TO 6 HOURS [facility] albuterol 90 mcg/actuati on inhaler 07-26 00:00: 00 Yes INHALE 1 TO 2 PUFFS EVERY 4 TO 6 HOURS [facility] albuterol 90 mcg/actuati on inhaler 07-26 00:00: 00 Yes INHALE 1 TO 2 PUFFS EVERY 4 TO 6 HOURS [facility] albuterol 90 mcg/actuati on inhaler 07-26 00:00: 00 Yes INHALE 1 TO 2 PUFFS EVERY 4 TO 6 HOURS [facility] albuterol 90 mcg/actuati on inhaler 07-26 00:00: 00 Yes INHALE 1 TO 2 PUFFS EVERY 4 TO 6 HOURS [facility] albuterol 90 mcg/actuati on inhaler 07-26 00:00: 00 Yes INHALE 1 TO 2 PUFFS EVERY 4 TO 6 HOURS [facility] albuterol 90 mcg/actuati on inhaler 07-26 00:00: 00 Yes INHALE 1 TO 2 PUFFS EVERY 4 TO 6 HOURS [facility] albuterol 90 mcg/actuati on inhaler 07-26 00:00: 00 Yes INHALE 1 TO 2 PUFFS EVERY 4 TO 6 HOURS [facility] albuterol 90 mcg/actuati on inhaler 07-26 00:00: 00 Yes INHALE 1 TO 2 PUFFS EVERY 4 TO 6 HOURS [facility] albuterol 90 mcg/actuati on inhaler 07-26 00:00: 00 Yes INHALE 1 TO 2 PUFFS EVERY 4 TO 6 HOURS [facility] albuterol 90 mcg/actuati on inhaler 07-26 00:00: 00 Yes INHALE 1 TO 2 PUFFS EVERY 4 TO 6 HOURS [facility] albuterol 90 mcg/actuati on inhaler 07-26 00:00: 00 Yes INHALE 1 TO 2 PUFFS EVERY 4 TO 6 HOURS [facility] diclofenac 75 mg EC tablet 07-16 00:00: 00 Yes 75mg Take 1 tablet by mouth 2 (two) times daily with meals. [facility] diclofenac 75 mg EC tablet 07-16 00:00: 00 08-11 00:00 :00 No 75mg Take 1 tablet by mouth 2 (two) times daily with meals. [facility] diclofenac 75 mg EC tablet 07-16 00:00: 00 08-11 00:00 :00 No 75mg Take 1 tablet by mouth 2 (two) times daily with meals. [facility] diclofenac 75 mg EC tablet 07-16 00:00: 00 08-11 00:00 :00 No 75mg Take 1 tablet by mouth 2 (two) times daily with meals. [facility] methylPREDN ISolone (MEDROL, JOAN,) 4 mg tablets 2016-06 2 00:00: 00 Yes 84mg Take 21 tablets by mouth SEE-INSTRU CTIONS. follow package directions [facility] methylPREDN ISolone (MEDROL, JOAN,) 4 mg tablets 2016-06 00:00: 00 08-11 00:00 :00 No 84mg Take 21 tablets by mouth SEE-INSTRU CTIONS. follow package directions [facility] methylPREDN ISolone (MEDROL, JOAN,) 4 mg tablets 2016-06 00:00: 00 08-11 00:00 :00 No 84mg Take 21 tablets by mouth SEE-INSTRU CTIONS. follow package directions [facility] methylPREDN ISolone (MEDROL, JOAN,) 4 mg tablets 2016-06 00:00: 00 08-11 00:00 :00 No 84mg Take 21 tablets by mouth SEE-INSTRU CTIONS. follow package directions [facility] acetaminoph en-codeine 300-30 mg tablet 2016-06 00:00: 00 Yes TAKE 1 TO 2 TABLETS EVERY 6 HOURS NEEDED FOR PAIN [facility] acetaminoph en-codeine 300-30 mg tablet 2016-06 00:00: 00 08-11 00:00 :00 No TAKE 1 TO 2 TABLETS EVERY 6 HOURS NEEDED FOR PAIN [facility] acetaminoph en-codeine 300-30 mg tablet 2016-06 00:00: 00 08-11 00:00 :00 No TAKE 1 TO 2 TABLETS EVERY 6 HOURS NEEDED FOR PAIN [facility] acetaminoph en-codeine 300-30 mg tablet 2016-06 00:00: 00 08-11 00:00 :00 No TAKE 1 TO 2 TABLETS EVERY 6 HOURS NEEDED FOR PAIN [facility] meloxicam 7.5 mg tablet 03-18 00:00: 00 Yes TAKE 1 TABLET EVERY DAY WITH FOOD [facility] meloxicam 7.5 mg tablet 03-18 00:00: 00 08-11 00:00 :00 No TAKE 1 TABLET EVERY DAY WITH FOOD [facility] meloxicam 7.5 mg tablet 03-18 00:00: 00 08-11 00:00 :00 No TAKE 1 TABLET EVERY DAY WITH FOOD [facility] meloxicam 7.5 mg tablet 03-18 00:00: 00 08-11 00:00 :00 No TAKE 1 TABLET EVERY DAY WITH FOOD [facility] Vital Signs Vital Name Observation Time Observation Value Comments S ource Systolic blood pressure 2020-09-01 14:12:00 138 mm[Hg] [facility] Diastolic blood pressure 2020-09-01 14:12:00 80 mm[Hg] [facility] Heart rate 2020-09-01 14:12:00 55 /min [facility] Body height 2020-09-01 14:12:00 165.1 cm [facility] Body weight 2020-09-01 14:12:00 60.782 kg [facility] BMI 2020-09-01 14:12:00 22.30 kg/m2 [facility] Systolic blood pressure 2020-08-29 14:07:00 126 mm[Hg] [facility] Diastolic blood pressure 2020-08-29 14:07:00 84 mm[Hg] [facility] Body height 2020-08-29 14:07:00 165.1 cm [facility] Body weight 2020-08-29 14:07:00 60.782 kg [facility] BMI 2020-08-29 14:07:00 22.30 kg/m2 [facility] Systolic blood pressure 2020-08-11 15:46:00 133 mm[Hg] [facility] Diastolic blood pressure 2020-08-11 15:46:00 84 mm[Hg] [facility] Heart rate 2020-08-11 15:46:00 81 /min [facility] Respiratory rate 2020-08-11 15:46:00 19 /min [facility] Body height 2020-08-11 15:46:00 165.1 cm [facility] Body weight 2020-08-11 15:46:00 60.782 kg [facility] BMI 2020-08-11 15:46:00 22.30 kg/m2 [facility] Oxygen saturation in Arterial blood by Pulse oximetry 2020-08-11 15:46:00 99 /min [place] [facility] Procedures Procedure Date / Time Performed Performing Clinicia n Source DISCLOSURE AND CONSENT, MEDICAL AND SURGICAL PROCEDURES 2020-08-29 06:01:00 Doctor Unassigned, [place] [facility] EXTERNAL PROVIDER - ADC CARDIOLOGY 2020-08-21 06:01:00 Doctor Unassigned, [place] [facility] HI ELECTROCARDIOGRAM, COMPLETE 2020-08-11 15:50:15 Mark Pagan [facility] CONSENT/REFUSAL FOR DIAGNOSIS AND TREATMENT 2020-08-11 14:58:15 Doctor Unassigned, [place] [facility] Encounters Start Date/Time End Date/Time Encounter Type Admission Type Attending [facility] Care Facility Care Department Encounter ID Source 2023-07-24 09:06:53 2023-07-24 09:06:53 Outpatient [facility] [id number] 2023-07-10 09:40:29 2023-07-10 09:40:29 Outpatient [facility] [id number] 2022-07-22 17:25:05 2022-07-22 17:25:05 Outpatient [facility] [id number] 2020-09-01 08:03:58 2020-09-01 09:03:58 Laboratory Only Pc, Adc Echo Room 1 - Mark Pagan [facility] [id number] [facility] 2020-09-01 08:00:00 2020-09-01 08:00:00 Outpatient [facility] [id number] [facility] 2020-08-30 00:00:00 2020-08-30 00:00:00 Telephone Mark Pagan [facility] [id number] [facility] 2020-08-29 07:58:40 2020-08-29 08:57:34 Laboratory Only Pc, Adc Echo Room 1 - Mark Pagan [facility] [id number] [facility] 2020-08-29 08:00:00 2020-08-29 08:00:00 Outpatient [facility] [id number] [facility] 2020-08-29 00:00:00 2020-08-29 00:00:00 Orders Only Doctor Unassigned, [place] [facility] [id number] [facility] 2020-08-28 08:00:00 2020-08-28 08:00:00 Outpatient [facility] [id number] [facility] 2020-08-21 00:00:00 2020-08-21 00:00:00 Orders Only Doctor Unassigned, [place] [facility] [id number] [facility] 2020-08-11 08:58:45 2020-08-11 10:09:51 Office Visit Mark Pagan [facility] [id number] [facility] 2020-08-11 09:30:00 2020-08-11 09:30:00 Outpatient R MARK PAGAN [facility] [id number] [facility] 2020-08-11 00:00:00 2020-08-11 00:00:00 Orders Only Doctor Unassigned, [place] [facility] [id number] [facility]
[2023-07-24 16:05] LABS: Absolute Lymphocytes (CBC) 0.6 K/uL (0.7-4.9); Hematocrit 31.7 % (39.6-49.0); Lymphocytes % 49.8 % (15.3-44.8); MCV 117.2 fL (80-100); Platelets 190 thou/uL (152-406)
[2023-07-24] MEDS ORDERED: NA CHLORIDE 0.9% 1,000 ML ONE (16:06)
[2023-07-24 16:23] LABS: Albumin 4.1 g/dL (3.4-5.0); Bilirubin Total 0.6 mg/dL (0.2-1.0); Potassium 3.5 mEq/L (3.5-5.1); Protein, Total 7.3 g/dL (6.4-8.2)
[2023-07-24 16:25] LABS: Protime INR 1.18
[2023-07-24 16:32] LABS: SARS-CoV-2 Antigen Rapid Res Negative (Negative)
[2023-07-24 16:40] LABS: Blood Morphology Comment NOTED (NOT SEEN); Macrocytosis 3+; Platelet Estimate ADEQ; Platelets, Giant PRESENT; White Blood Cell Scan OK (OK)
--- NOTE | 2023-07-24 16:58 | RAD REPORT ---
EXAM DESCRIPTION: Zaid Single View07/24/2023 4:22 pm CLINICAL HISTORY: Fever and chills COMPARISON: 2021 FINDINGS: The lungs appear clear of acute infiltrate. The heart is normal size IMPRESSION: No acute abnormalities displayed
--- NOTE | 2023-07-24 16:58 | RAD REPORT ---
EXAM DESCRIPTION: CT - Head Brain Wo Cont - 07/24/2023 4:28 pm CLINICAL HISTORY: Dizziness COMPARISON: None TECHNIQUE: Computed axial tomography of the head was obtained. IV contrast was not requested. All CT scans are performed using dose optimization technique as appropriate and may include automated exposure control or mA/KV adjustment according to patient size. FINDINGS: An intracranial bleed is not seen The ventricles are normal in caliber No extra-axial fluid collection is noted. No significant hypodensity within the brain seen. 3.4 centimeter lytic lesion involves the right frontal bone. The lesion also involves the right super ior orbital rim Fluid within the sinuses/ mastoids is not seen. IMPRESSION: 3.4 centimeter lytic lesion involves the right frontal bone. The lesion also involves th e right superior orbital rim This could be benign or malignant. Bone scan would be helpful to assess the remainder of the bones
[2023-07-24 18:00] LABS: Specific Gravity 1.011 (1.005-1.030); Urine Bacteria None Seen /HPF (<20); Urine Bilirubin NEGATIVE (Negative); Urine Blood Negative (Negative); Urine Clarity Extremely Turbid (Clear); Urine Color Light-Yellow (Yellow); Urine Glucose NEGATIVE (Negative); Urine Mucus Slight /HPF (None Seen); Urine Protein NEGATIVE (Negative); Urine RBC None Seen /HPF (None Seen); Urine Urobilinogen Normal (Normal); Urine pH 7.5 (5.0-7.0)
[2023-07-24] MEDS ORDERED: VANCOMYCIN 1 GM/VIAL ONE (18:20)
[2023-07-24] MEDS ORDERED: CEFEPIME 1 GM/VIAL ONE (18:21)
[2023-07-24] MEDS ORDERED: NA CHLORIDE 0.9% 100 ML ONE (18:21)
[2023-07-24] MEDS ORDERED: NA CHLORIDE 0.9% 250 ML ONE (18:21)
--- NOTE | 2023-07-24 18:59 | EDPHYS ---
Physician Documentation [facility] Name: Mir Pizarro Age: 48 yrs Sex: Male : 1975 Arrival Date: 07/24/2023 Time: 15:28 Bed 8 Private MD: ED Physician Rahul Patel HPI: 07/24 15:56 This 48 yrs old Male presents to ER via EMS with complaints of weakness. rn 15:56 Patient reports generalized weakness that began earlier today. States went to clinic rn for concern of right toe infection and given antibiotics and pain medication. Patient reports had new boots and started noticing discoloration and redness of the right great toe. No open wounds. Also states boots were wet. Patient denies fever but reports chills and generalized weakness for 1 day. No focal weakness or numbness. No cough. No chest pain. No shortness of breath. No abdominal pain. No vomiting or diarrhea. Reports not taking much p.o. and decreased appetite but no abdominal pain.. Onset: The symptoms/episode began/occurred today. Severity of symptoms: At their worst the symptoms were moderate in the emergency department the symptoms are unchanged. The patient has not experienced similar symptoms in the past. The patient has not recently seen a physician. Historical: - Allergies: 15:33 No Known Allergies; tl4 - Home Meds: 15:33 Bactrim DS 800-160 mg Oral tablet 1 tab 2 times per day [Active]; Indocin 50 mg Oral 50 tl4 mg 2 times per day [Active]; - PMHx: 15:33 None; tl4 - Immunization history:: Adult Immunizations unknown. - Social history:: Smoking status: Patient denies any tobacco usage or history of. - Family history:: not pertinent. - Hospitalizations: : No recent hospitalization is reported. ROS: 15:56 Constitutional: Negative for fever, positive for chills Eyes: Negative for injury, rn pain, redness, and discharge, ENT: Negative for injury, pain, and discharge, Neck: Negative for injury, pain, and swelling, Cardiovascular: Negative for chest pain, palpitations, and edema, Respiratory: Negative for shortness of breath, cough, wheezing, and pleuritic chest pain, Abdomen/GI: Negative for abdominal pain, nausea, vomiting, diarrhea, and constipation, MS/Extremity: Negative for injury and deformity, Skin: Negative for injury, rash, and discoloration, Neuro: Negative for headache, numbness, tingling, and seizure, Exam: 15:56 Constitutional: This is a well developed, well nourished patient who is awake, appears rn somnolent but awakens to voice and holds entire conversation without difficulty Head/Face: Normocephalic, atraumatic. ENT: Dry mucous membranes Cardiovascular: Regular rate and rhythm. No pulse deficits. Respiratory: No increased work of breathing, no retractions or nasal flaring. Abdomen/GI: Soft, non-tender MS/ Extremity: Pulses equal, no cyanosis Neuro: Awake and alert, GCS 15, oriented to person, place, time, and situation. Cranial nerves II-XII grossly intact. Motor strength 4/5 in all extremities. Sensory grossly intact. Cerebellar exam normal. Vital Signs: 15:29 BP 175 / 93; Pulse 61; Resp 16; Temp 98.4(O); Pulse Ox 100% on R/A; Weight 61.23 kg; tl4 Height 5 ft. 5 in. ; Pain 8/10; 16:16 BP 173 / 96; Pulse 65; Resp 16; Pulse Ox 99% on R/A; tl4 17:02 BP 150 / 90; Pulse 63; Resp 15; Pulse Ox 100% ; ko1 21:43 BP 132 / 85; Pulse 54; Resp 16; Pulse Ox 100% on R/A; jb4 15:29 Body Mass Index 22.46 (61.23 kg, 165.1 cm) tl4 15:29 Pain Scale: Adult tl4 MDM: 15:32 Patient medically screened. rn 18:56 Differential Diagnosis Syndrome, cellulitis, dehydration, stroke.. Data reviewed: vital rn signs, nurses notes, lab test result(s), radiologic studies, CT scan, and as a result, I will admit patient. Consideration of Admission/Observation Patient was admitted/placed on observation. Escalation of care including admission/observation considered. Counseling: I had a detailed discussion with the patient and/or guardian regarding the historical points, exam findings, and any diagnostic results supporting the discharge/admit diagnosis, lab results, the need for further work-up and treatment in the hospital. Response to treatment: the patient's symptoms have mildly improved after treatment. 07/24 15:33 Order name: Blood Culture Adult (2) rn 07/24 15:33 Order name: CBC with Diff; Complete Time: 16:59 rn 07/24 15:33 Order name: CMP; Complete Time: 16:28 rn 07/24 15:33 Order name: Lactate w/ 2H reflex if indic.; Complete Time: 16:35 rn 07/24 15:33 Order name: Protime (+inr); Complete Time: 16:28 rn 07/24 15:33 Order name: Ptt, Activated; Complete Time: 16:28 rn 07/24 15:33 Order name: Urinalysis w/ reflexes; Complete Time: 18:08 rn 07/24 15:33 Order name: Flu; Complete Time: 16:35 rn 07/24 15:33 Order name: SARS RAPID; Complete Time: 16:35 07/24 16:40 Order name: CBC Smear Scan; Complete Time: 16:59 EDUT 07/24 18:57 Order name: Lactate Sepsis 2 HR Follow-up; Complete Time: 18:59 EDUT 07/24 20:07 Order name: Urinalysis w/ reflexes EDUT 07/24 20:08 Order name: CBC with Automated Diff EDUT 07/24 20:08 Order name: CBC with Automated Diff EDUT 07/24 20:08 Order name: Comprehensive Metabolic Panel EDUT 07/24 20:08 Order name: Comprehensive Metabolic Panel [facility] 07/24 15:33 Order name: Chest Single View XRAY; Complete Time: 16:59 07/24 15:33 Order name: CT Head Brain wo Cont; Complete Time: 16:59 07/24 20:04 Order name: Foot Right 2 View EDUT 07/24 15:33 Order name: EKG; Complete Time: 15:33 rn 07/24 15:33 Order name: Cardiac monitoring; Complete Time: 15:39 rn 07/24 15:33 Order name: EKG - Nurse/Tech; Complete Time: 16:48 rn 07/24 15:33 Order name: IV Saline Lock - Large Bore; Complete Time: 15:59 rn 07/24 15:33 Order name: Labs collected and sent; Complete Time: 15:59 rn 07/24 15:33 Order name: O2 Per Protocol; Complete Time: 15:39 rn 07/24 15:33 Order name: O2 Sat Monitoring; Complete Time: 15:39 rn 07/24 15:33 Order name: Vital Signs; Complete Time: 15:39 rn Administered Medications: 16:20 Drug: NS 0.9% IV 1000 ml IV at 1000 ml once Route: IV; Rate: 1000 ml; Site: right tl4 antecubital; Delivery: Primary tubing; 16:47 Drug: NS 0.9% IV 1000 ml IV at 1000 ml once Route: IV; Rate: 1000 ml; Site: right ko1 antecubital; 18:19 Follow up: IV Status: Completed infusion; IV Intake: 1000ml ko1 18:23 Drug: Cefepime IVPB 1 grams IVPB at 200 ml/hr once over 30 mins; (mix in NS 100 mL) ko1 Route: IVPB; Rate: 200 ml/hr; Infused Over: 30 mins; Site: right antecubital; 18:40 Drug: vancoMYCIN IVPB 1 grams IVPB once over 2 hrs Route: IVPB; Infused Over: 2 hrs; ko1 Site: right antecubital; Disposition Summary: 07/24/23 18:58 Hospitalization Ordered Notes: Hospitalization Status: Observation rn Provider: Vamshi Soto [facility]n [facility] rn Condition: Stable rn Problem: new rn Symptoms: have improved rn Bed/Room Type: Standard rn Room Assignment: 405(07/24/23 20:48) jb4 Diagnosis - Muscle weakness (generalized) rn - Acidosis rn Forms: - Medication Reconciliation Form rn - SBAR form rn - Leadership Thank You Letter rn Signatures: Dispatcher [employer] Rahul Burkett MD MD rn Bryson, James RN RN jb4 Maddie Kendall RN RN ko1 Stiven Ojeda tl4 Corrections: (The following items were deleted from the chart) 16:48 15:33 Accucheck ordered. rn ko1 20:48 18:58 rn jb4
--- NOTE | 2023-07-24 18:59 | ER ---
Nurse's Notes [facility] Name: Mir Pizarro Age: 48 yrs Sex: Male : 1975 Arrival Date: 07/24/2023 Time: 15:28 Bed 8 Private MD: Diagnosis: Muscle weakness (generalized);Acidosis Presentation: 07/24 15:29 Chief complaint: Patient states: Pt c/o feeling weak and drowsy today. Pt states he was tl4 diagnosed with an infection to his right great toe. Pt started new medication today and is now to weak to walk. Coronavirus screen: Vaccine status: Patient reports receiving the 2nd dose of the covid vaccine. At this time, the client does not indicate any symptoms associated with coronavirus-19. Ebola Screen: Patient negative for fever greater than or equal to 101.5 degrees Fahrenheit, and additional compatible Ebola Virus Disease symptoms Patient denies exposure to infectious person. Patient denies travel to an Ebola-affected area in the 21 days before illness onset. No symptoms or risks identified at this time. Initial Sepsis Screen: Does the patient meet any 2 criteria? No. Patient's initial sepsis screen is negative. Does the patient have a suspected source of infection? No. Patient's initial sepsis screen is negative. Risk Assessment: Do you want to hurt yourself or someone else? Patient reports no desire to harm self or others. Onset of symptoms was July 24, 2023. 15:29 Method Of Arrival: EMS: [facility] 4 15:29 Acuity: QUOC 3 tl4 Triage Assessment: 15:35 General: Appears in no apparent distress. Behavior is drowsy, flat. Pain: Complains of tl4 pain in right foot. EENT: No deficits noted. No signs and/or symptoms were reported regarding the EENT system. Neuro: Level of Consciousness is Fatigued. Oriented to person, place, time, situation, Assistant Sales Director are equal bilaterally Moves all extremities. Gait is pt states he is too weak to walk. Speech is normal, Facial symmetry appears normal, Pupils are PERRLA. Cardiovascular: Reports fatigue, Denies chest pain, lightheadedness, palpitations. Respiratory: No deficits noted. Denies cough, shortness of breath. GI: No deficits noted. No signs and/or symptoms were reported involving the gastrointestinal system. : No deficits noted. No signs and/or symptoms were reported regarding the genitourinary system. Derm: No deficits noted. No signs and/or symptoms reported regarding the dermatologic system. Musculoskeletal: No deficits noted. No signs and/or symptoms reported regarding the musculoskeletal system. Historical: - Allergies: 15:33 No Known Allergies; tl4 - Home Meds: 15:33 Bactrim DS 800-160 mg Oral tablet 1 tab 2 times per day [Active]; Indocin 50 mg Oral 50 tl4 mg 2 times per day [Active]; - PMHx: 15:33 None; tl4 - Immunization history:: Adult Immunizations unknown. - Social history:: Smoking status: Patient denies any tobacco usage or history of. - Family history:: not pertinent. - Hospitalizations: : No recent hospitalization is reported. Screenin:38 [facility] ED Fall Risk Assessment (Adult) History of falling in the last 3 months, tl4 including since admission No falls in past 3 months (0 pts) Confusion or Disorientation No (0 pts) Intoxicated or Sedated No (0 pts) Impaired Gait No (0 pts) Mobility Assist Device Used No (0 pt) Altered Elimination No (0 pt) Score/Fall Risk Level 0 - 2 = Low Risk Oriented to surroundings, Maintained a safe environment, Educated pt \T\ family on fall prevention, incl call for assistance when getting out of bed, Assessed \T\ reinforced patient's understanding of fall precautions, Provided non-skid footwear, Hourly rounding (assess needs \T\ fall precautionary measures) done, Used ambulatory aids as needed (educated on \T\ assisted with), Used gait belt as appropriate. Abuse screen: Denies threats or abuse. Denies injuries from another. Nutritional screening: No deficits noted. Tuberculosis screening: No symptoms or risk factors identified. Assessment: 16:16 Reassessment: No changes from previously documented assessment. Patient and/or family tl4 updated on plan of care and expected duration. Pain level reassessed. Patient is alert, oriented x 3, equal unlabored respirations, skin warm/dry/pink. 21:47 Reassessment: Patient appears in no apparent distress at this time. Patient and/or jb4 family updated on plan of care and expected duration. Pain level reassessed. Patient is alert, oriented x 3, equal unlabored respirations, skin warm/dry/pink. 21:48 Reassessment: Patient appears in no apparent distress at this time. Patient and/or jb4 family updated on plan of care and expected duration. Pain level reassessed. Patient is alert, oriented x 3, equal unlabored respirations, skin warm/dry/pink. Patient denies pain at this time. 21:51 Reassessment: attempted to call report. Receiving RN states they will call back. jb4 Vital Signs: 15:29 BP 175 / 93; Pulse 61; Resp 16; Temp 98.4(O); Pulse Ox 100% on R/A; Weight 61.23 kg; tl4 Height 5 ft. 5 in. ; Pain 8/10; 16:16 BP 173 / 96; Pulse 65; Resp 16; Pulse Ox 99% on R/A; tl4 17:02 BP 150 / 90; Pulse 63; Resp 15; Pulse Ox 100% ; ko1 21:43 BP 132 / 85; Pulse 54; Resp 16; Pulse Ox 100% on R/A; jb4 15:29 Body Mass Index 22.46 (61.23 kg, 165.1 cm) tl4 15:29 Pain Scale: Adult tl4 ED Course: 15:29 Patient arrived in ED. ko1 15:32 Rahul Patel MD is Attending Physician. rn 15:33 Triage completed. tl4 15:37 Arm band placed on Patient placed in an exam room, on a stretcher. tl4 15:38 Patient has correct armband on for positive identification. Placed in gown. Bed in low tl4 position. Call light in reach. Side rails up X2. Provided Education on: ed process. Client placed on continuous cardiac and pulse oximetry monitoring. NIBP monitoring applied. ekg monitor tech on. Door closed. Noise minimized. Lights dimmed. Moved to private room. Warm blanket given. 15:39 No provider procedures requiring assistance completed. tl4 15:59 Maddie Kendall, KHLOE is Primary Nurse. ko1 15:59 SARS RAPID Sent. ko1 15:59 Flu Sent. ko1 15:59 Blood Culture Adult (2) Sent. ko1 15:59 CBC with Diff Sent. ko1 15:59 CMP Sent. ko1 15:59 Lactate w/ 2H reflex if indic. Sent. ko1 15:59 Protime (+inr) Sent. ko1 15:59 Ptt, Activated Sent. ko1 16:19 Inserted saline lock: 20 gauge in right antecubital area, using aseptic technique. tl4 Blood collected. 16:23 Chest Single View XRAY In Process Unspecified. EDMS 16:30 CT Head Brain wo Cont In Process Unspecified. EDMS 17:37 Urinalysis w/ reflexes Sent. ko1 18:58 Vamshi Soto MD is Hospitalizing Provider. rn 22:23 Patient admitted, IV remains in place. jb4 Administered Medications: 16:20 Drug: NS 0.9% IV 1000 ml IV at 1000 ml once Route: IV; Rate: 1000 ml; Site: right tl4 antecubital; Delivery: Primary tubing; 16:47 Drug: NS 0.9% IV 1000 ml IV at 1000 ml once Route: IV; Rate: 1000 ml; Site: right ko1 antecubital; 18:19 Follow up: IV Status: Completed infusion; IV Intake: 1000ml ko1 18:23 Drug: Cefepime IVPB 1 grams IVPB at 200 ml/hr once over 30 mins; (mix in NS 100 mL) ko1 Route: IVPB; Rate: 200 ml/hr; Infused Over: 30 mins; Site: right antecubital; 18:40 Drug: vancoMYCIN IVPB 1 grams IVPB once over 2 hrs Route: IVPB; Infused Over: 2 hrs; ko1 Site: right antecubital; Medication: 15:38 VIS not applicable for this client. tl4 Intake: 18:19 IV: 1000ml; Total: 1000ml. ko1 Outcome: 18:58 Decision to Hospitalize by Provider. rn 22:23 Admitted to Tele accompanied by tech, via wheelchair, room 405, with chart, Report jb4 called to KHLOE Gonzalez 22:23 Condition: stable 22:23 Discharge instructions given to patient, Instructed on the need for admit, Demonstrated understanding of instructions, 22:23 Patient left the ED. jb4 Signatures: Dispatcher [employer] EDRahul Paige MD MD rn Bryson, James, RN RN jb4 Maddie Kendall RN RN ko1 Stiven Ojeda tl4
[2023-07-24] MEDS ORDERED: ONDANSETRON 4 MG/2 ML VIAL IV PRN (20:04)
[2023-07-24] MEDS ORDERED: HYDROCODONE/APAP 5/325 MG TAB PO PRN (20:36)
--- NOTE | 2023-07-24 20:45 | P.HP ---
Certification for Inpatient With expected LOS: >2 Midnights Practitioner: I am a practitioner with admitting privileges, knowledge of patient current condition, hospital course, and medical plan of care. Services: Services provided to patient in accordance with Admission requirements found in Title 42 Section 412.3 of the Code of Federal Regulations Patient History Date of Service: 07/24/23 Reason for admission: Weakness History of Present Illness: 48-year-old male with a history of hypertension presented to the ED with complaints of weakness, lightheadedness and drowsiness shortly after taking ind omethacin and Bactrim that was prescribed by his PCP for his right great toe infection. Patient noticed redness, pain and swelling of the right great toe yesterday 2 days ago there is no open lesion or drainage. [place] [employer], although he wears steel boots but has been wearing his old boots the last few days and Sarahy soaked boots and because abrasion on the toe then the redness started. He then went to city PCP today due to increasing pain and not only taking a dose of Bactrim and indomethacin prior to beginning to feel weak, lightheaded and drowsy. He denied any fever, nausea or vomiting. On arrival to the ED, initial SBP was 175. Lab work is notable for WBC 1.2k, H&H 11.7/31.7 and lactic acid 2.5. Chest x-ray, CT head and UA were negative. He was given 1 L IV fluid bolus along with flank and cefepime. Repeat lactic acid 1.1. Allergies No Known Drug Allergies Allergy (Unverified 03/14/15 15:57) Unknown Home Medications: Codeine/APAP [Tylenol W/Codeine #3 tab] 1 tab PO Q4HP PRN #30 tab 02/22/15 - Past Medical/Surgical History Diabetic: No - Social History Alcohol use: Yes CD- Drugs: No Caffeine use: Yes Review of Systems 10-point ROS is otherwise unremarkable Physical Examination - Vital Signs Temperature: 98 F Blood Pressure: 150/90 Pulse: 63 Respirations: 15 Pulse Ox (%): 100 - Physical Exam General: Alert, In no apparent distress, Oriented x3 HEENT: Atraumatic, Normocephalic, Mucous membr. moist/pink Neck: Supple Respiratory: Clear to auscultation bilaterally, Normal air movement Cardiovascular: Regular rate/rhythm, Normal S1 S2 Gastrointestinal: Normal bowel sounds, No tenderness, No masses Musculoskeletal: Swelling, Erythema, Tenderness Integumentary: Tenderness/swelling, Erythema, Warmth (Rt great toe around the nailbed) Neurological: Normal gait, Normal speech, Normal strength at 5/5 x4 extr - Studies Laboratory Data (last 24 hrs) 07/24/23 07/24/23 07/24/23 16:00 15:45 15:45 WBC 1.20 L Hgb 11.7 L Hct 31.7 L Plt Count 190 PT 12.9 H INR 1.18 APTT 26.4 Sodium 138 Potassium 3.5 BUN 13 Creatinine 1.11 Glucose 145 H Total Bilirubin 0.6 AST 12 L ALT 26 Alkaline Phosphatase 83 Microbiology Data (last 24 hrs): 07/24/23 15:55 Nasopharnyx Influenza Type A Antigen Screen - Final 07/24/23 15:55 Nasopharnyx Influenza Type B Antigen Screen - Final Assessment and Plan - Plan Right great toe cellulitis Will start cefazolin Pain control, IV fluid X-ray of the foot Follow-up blood cultures Lactic acidosis Multifactorial; infection vs medication induced Improved with IV fluid Hypertension Resume home meds as appropriate - Advance Directives Does patient have a Living Will: No Does patient have a Durable POA for Healthcare: No
[2023-07-24] MEDS ORDERED: NA CHLORIDE 0.9% 1,000 ML with POTASSIUM CL 10 MEQ IV SCH ×2 (21:00)
--- NOTE | 2023-07-24 21:44 | RAD REPORT ---
EXAM DESCRIPTION: RAD - Foot Right 2 View - 07/24/2023 8:54 pm CLINICAL HISTORY: Right foot pain and swelling FINDINGS: No fracture or dislocation is seen. No bony destructive lesion noted
[2023-07-24 22:43] VITALS: O2SAT 100; BMI 21.1
[2023-07-24] MEDS ORDERED: POTASSIUM CL SA 10 MEQ TAB PO ONE (22:52)
[2023-07-24] MEDS ORDERED: NA CHLORIDE 0.9% 1,000 ML IV SCH (23:00)
[2023-07-24] MEDS: CEFAZOLIN 1 GM in NA CHLORIDE 0.9% 50 ML IVPB SCH (23:20)
[2023-07-24 23:42] LABS: Specific Gravity 1.016 (1.005-1.030); Urine Bilirubin NEGATIVE (Negative); Urine Blood Negative (Negative); Urine Clarity Clear (Clear); Urine Color Light-Yellow (Yellow); Urine Glucose NEGATIVE (Negative); Urine Protein NEGATIVE (Negative); Urine Urobilinogen Normal (Normal)
[2023-07-25 05:30] LABS: Absolute Lymphocytes (CBC) 0.6 K/uL (0.7-4.9); Hematocrit 28.8 % (39.6-49.0); Lymphocytes % 54.1 % (15.3-44.8); MCV 117.2 fL (80-100); Platelets 154 thou/uL (152-406); RBC Red Blood Cell Count 2.46 M/uL (4.33-5.43)
[2023-07-25] MEDS: CEFAZOLIN 1 GM in NA CHLORIDE 0.9% 50 ML IVPB SCH ×3 (05:38→20:15)
[2023-07-25 05:48] LABS: Albumin 3.3 g/dL (3.4-5.0); Bilirubin Total 0.7 mg/dL (0.2-1.0); Potassium 4.5 mEq/L (3.5-5.1)
--- NOTE | 2023-07-25 07:45 | P.PN ---
Subjective Date of Service: 07/26/23 Chief Complaint: Weakness No reported fever, weakness improved, no reported unsteady gait - Physical Exam General: Alert, In no apparent distress, Oriented x3 HEENT: Atraumatic, Normocephalic, Mucous membr. moist/pink Neck: Supple Respiratory: Clear to auscultation bilaterally, Normal air movement Cardiovascular: Regular rate/rhythm, Normal S1 S2 Gastrointestinal: Normal bowel sounds, No tenderness, No masses Musculoskeletal: Swelling, Erythema, Tenderness Integumentary: Tenderness/swelling, Erythema, Warmth (Rt great toe around the nailbed) Neurological: Normal gait, Normal speech, Normal strength at 5/5 x4 extr Review of Systems per HPI Physical Examination - Vital Signs Temperature: 97.9 F Blood Pressure: 136/62 Pulse: 59 Respirations: 16 Pulse Ox (%): 99 - Studies Laboratory Data (last 24 hrs) 07/24/23 07/24/23 07/24/23 16:00 15:45 15:45 WBC 1.20 L Hgb 11.7 L Hct 31.7 L Plt Count 190 PT 12.9 H INR 1.18 APTT 26.4 Sodium 138 Potassium 3.5 BUN 13 Creatinine 1.11 Glucose 145 H Total Bilirubin 0.6 AST 12 L ALT 26 Alkaline Phosphatase 83 Microbiology Data (last 24 hrs): 07/24/23 15:55 Nasopharnyx Influenza Type A Antigen Screen - Final 07/24/23 15:55 Nasopharnyx Influenza Type B Antigen Screen - Final Assessment And Plan - Plan - Plan Right great toe cellulitis Gout Will start cefazolin Pain control, IV fluid X-ray of the foot negative for acute fracture Follow-up blood cultures no growth MRI of the foot negative for osteomyelitis Influenza AMB negative Leukopenia Additional lab workup for antiinflammatory, autoimmune, HIV Lactic acidosis improved Multifactorial; infection vs medication induced Improved with IV fluid Hypertension Resume home meds as appropriate Full code Diet regular DVT Discharge Plan: Home - Code Status/Comfort Care Code Status: Full Code Critical Care: No Time Spent Managing PTS Care (In Minutes): 35
[2023-07-25] MEDS ORDERED: ENOXAPARIN 40 MG/0.4 ML SQ SCH (09:00)
[2023-07-25 10:25] LABS: Blood Morphology Comment NOTED (NOT SEEN); Macrocytosis 3+; Platelet Estimate ADEQ
--- NOTE | 2023-07-25 11:35 | P.DS ---
Admission Date: 07/24/23 Discharge Date: 07/25/23 Disposition: ROUTINE DISCHARGE Discharge Condition: FAIR Reason for Admission: Weakness Brief History of Present Illness: 48-year-old male with a history of hypertension presented to the ED with complaints of weakness, lightheadedness and drowsiness shortly after taking indomethacin and Bactrim that was prescribed by his PCP for his right great toe infection. Patient noticed redness, pain and swelling of the right great toe yesterday 2 days ago there is no open lesion or drainage. Patient works at the [employer], although he wears steel boots but has been wearing his old boots the last few days and Sarahy soaked boots and because abrasion on the toe then the redness started. He then went to city PCP today due to increasing pain and not only taking a dose of Bactrim and indomethacin prior to beginning to feel weak, lightheaded and drowsy. He denied any fever, nausea or vomiting. On arrival to the ED, initial SBP was 175. Lab work is notable for WBC 1.2k, H&H 11.7/31.7 and lactic acid 2.5. Chest x-ray, CT head and UA were negative. He was given 1 L IV fluid bolus along with flank and cefepime. Repeat lactic acid 1.1. - Physical Exam General: Alert, In no apparent distress, Oriented x3 HEENT: Atraumatic, Normocephalic, Mucous membr. moist/pink Neck: Supple Respiratory: Clear to auscultation bilaterally, Normal air movement Cardiovascular: Regular rate/rhythm, Normal S1 S2 Gastrointestinal: Normal bowel sounds, No tenderness, No masses Musculoskeletal: Swelling, Erythema, Tenderness Integumentary: Tenderness/swelling, Erythema, Warmth (Rt great toe around the nailbed) Neurological: Normal gait, Normal speech, Normal strength at 5/5 x4 extr Hospital Course: 48year-old male patient presented with right great toe infection. Was noted to have cellulitis of the right lower extremity. Was treated with x-ray of the right foot was negative for fracture or osteomyelitis, IV antibiotics, IV fluid. Condition improved with IV antibiotic. Stable for discharge to home with p.o. antibiotic with follow-up appointment with primary care physician in 7 to 10 days. PROBLEM: Cellulitis of the right great toe Unsteady gait likely secondary to medication interaction Prescription for Keflex 1 3 times daily for 7 days until gone Metronidazole 3 times daily every 8 hours until gone MRI of the right foot negative for osteomyelitis Right foot x-ray negative for fracture Continue home medicines as previously prescribed GOAL: Clear understanding of disease process INSTRUCTIONS: Physician Discharge Instructions: -DC IV and DC home -Follow-up with PCP in 1 to 2 weeks -Please call Dr. Mata at [phone] if any questions regarding hospital stay -Please call nursing station at [phone] if any nursing or medication questions -Return to the emergency room if symptoms worsen Diet: ADA, low sodium Activity: Fall precautions DME: Date Ordered: Name of Company: [employer] Services Needed: None Date or Referral: IMMUNIZATION Influenza Vaccine Indicated: Influenza Vaccine Given: Date Given: Pneumonia Vaccine Indicated: Pneumonia Vaccine Given: Date Given: Vital Signs/Physical Exam: Temp Pulse Resp BP Pulse Ox 97.9 F 57 15 135/65 99 07/25/23 08:00 07/25/23 08:00 07/25/23 08:00 07/25/23 08:00 07/25/23 08:00 Laboratory Data at Discharge: WBC 1.20 thou/uL (4.3-10.9) L 07/25/23 05:05 Hgb 10.5 g/dL (13.6-17.9) L D 07/25/23 05:05 Hct 28.8 % (39.6-49.0) L 07/25/23 05:05 Plt Count 154 thou/uL (152-406) 07/25/23 05:05 PT 12.9 SECONDS (9.5-12.5) H 07/24/23 16:00 INR 1.18 07/24/23 16:00 APTT 26.4 SECONDS (24.3-36.9) 07/24/23 16:00 Sodium 140 mEq/L (136-145) 07/25/23 05:05 Potassium 4.5 mEq/L (3.5-5.1) D 07/25/23 05:05 BUN 10 mg/dL (7-18) 07/25/23 05:05 Creatinine 0.94 mg/dL (0.70-1.30) 07/25/23 05:05 Glucose 84 mg/dL (74-106) 07/25/23 05:05 Total Bilirubin 0.7 mg/dL (0.2-1.0) 07/25/23 05:05 AST 9 U/L (15-37) L 07/25/23 05:05 ALT 21 U/L (16-61) 07/25/23 05:05 Alkaline Phosphatase 72 U/L (45-117) 07/25/23 05:05 Home Medications: Indomethacin 1 tab PO BID 07/24/23 Smz./Tmp. [Bactrim Ds 800 MG/160 MG*] 1 tab PO BID 07/24/23 Diet: AHA Followup: NONE,NONE [Primary Care Provider] - Time spent managing pt's care (in minutes): 55
[2023-07-25] MEDS: METRONIDAZOLE 500mg IVPB 500 MG/100 ML BAG IV SCH ×2 (12:35→17:07)
--- NOTE | 2023-07-25 14:00 | RAD REPORT ---
EXAM DESCRIPTION: MRI - Foot Right Wo Cont - 07/25/2023 1:39 pm CLINICAL HISTORY: cellulitis R) great toe COMPARISON: Foot Right 2 View dated 07/24/2023 FINDINGS: Edema signal and thickening of the soft tissues is seen great toe current slight underlyin g reactive edema is seen in the proximal distal phalanx of the great toe. No marrow replacing process to indicate osteomyelitis, however. No soft tissue mass or hematoma. No fracture or dislocation. IMPRESSION: Negative for osteomyelitis.
[2023-07-25] MEDS ORDERED: LORAZEPAM 0.5 MG TABLET PO ONE (20:00)
[2023-07-25] MEDS ORDERED: METOPROLOL TAR 50 MG TAB PO ONE (21:29)
[2023-07-26] MEDS ORDERED: METOPROLOL TAR 25 MG TAB PO SCH (06:00)
[2023-07-26 07:24] VITALS: BP 136/62; TEMP 97.9
== END 2023-07-25 22:00 | disposition left against medical advice (07) | DRG 603 ==
LOC: ER 15:28 → ERHOLD 20:14 → 4TH 21:52
PROVIDERS: ADMIT Internal Medicine; ATTEND Hospitalist
DX: L03.031 Cellulitis of right toe (principal); E87.21 Acute metabolic acidosis; I10 Essential (primary) hypertension; M10.9 Gout, unspecified; D72.819 Decreased white blood cell count, unspecified; R53.1 Weakness; Z11.52 Encounter for screening for COVID-19
CPT/HCPCS: 36415; 70450; 71045; 80053; 81001; 81003; 83605; 85025; 85610; 85730; 87040; 87804; 87811; 93005; J0690; J0692; J1650; J3480; J7030; J7050

== ENCOUNTER 2023-07-26 22:47 | Emergency (ER) | payer OTHER ==
--- OUTSIDE RECORDS SUMMARY | 2023-07-26 22:51 | XMS REPORT | Continuity of Care Document ---
Author Name Unknown Address [address] [place] [address] [facility] Address [address] [place] [address] Care Team Providers Care Drug Abuse Worker Name Role Phone Pc, Adc Echo Room 1 - Attending Clinician Cate Pagan MD, Mark K.HAshley Attending Clinician [phone] Doctor Unassigned, [place] Attending Clinician MARK Fernando Attending Clinician Unavaila ble Payers Payer Name Policy Type Policy Number Effective Date Expirati on Date Source Allergies, Adverse Reactions, Alerts Allergy Name Allergy Type Status Severity Reaction(s) Onset Date Inactive Date Treating Clinician Comments Source NO KNOWN ALLERGIE S Drug Class Active [facility] Social History Social Habit Start Date Stop Date Quantity Comments Source Exposure to SARS-CoV-2 (event) Not sure [facility] Tobacco use and exposure 2020-08-11 00:00:00 2020-08-11 00:00:00 Never used [facility] Sex Assigned At 1975 00:00:00 1975 00:00:00 [facility] Smoking Status Start Date Stop Date Source Never smoker [facility] Medications Ordered Medication Name Filled Medication Name Start Date Stop Date Current Medication? Ordering Clinician Indication Dosage Frequency Signature (SIG) Comments Components Source gemfibroziL 600 mg tablet 08-11 00:00: 00 Yes 600mg Take 600 mg by mouth 2 (two) times daily. [facility] gemfibroziL 600 mg tablet 08-11 00:00: 00 Yes 600mg Take 600 mg by mouth 2 (two) times daily. [facility] gemfibroziL 600 mg tablet 0 212 00:00: 00 Yes 600mg Take 600 mg by mouth 2 (two) times daily. [facility] gemfibroziL 600 mg tablet 0 2-12 00:00: 00 Yes 600mg Take 600 mg by mouth 2 (two) times daily. [facility] gemfibroziL 600 mg tablet 2-12 00:00: 00 Yes 600mg Take 600 mg by mouth 2 (two) times daily. [facility] gemfibroziL 600 mg tablet 08-11 00:00: 00 Yes 600mg Take 600 mg by mouth 2 (two) times daily. [facility] gemfibroziL 600 mg tablet 2 00:00: 00 Yes 600mg Take 600 mg by mouth 2 (two) times daily. [facility] gemfibroziL 600 mg tablet 08-11 00:00: 00 Yes 600mg Take 600 mg by mouth 2 (two) times daily. [facility] albuterol 90 mcg/actuati on inhaler 07-26 00:00: 00 Yes INHALE 1 TO 2 PUFFS EVERY [address] [facility] albuterol 90 mcg/actuati on inhaler 07-26 00:00: 00 Yes INHALE 1 TO 2 PUFFS EVERY [address] [facility] albuterol 90 mcg/actuati on inhaler 07-26 00:00: 00 Yes INHALE 1 TO 2 PUFFS EVERY [address] [facility] albuterol 90 mcg/actuati on inhaler 07-26 00:00: 00 Yes INHALE 1 TO 2 PUFFS EVERY [address] [facility] albuterol 90 mcg/actuati on inhaler 07-26 00:00: 00 Yes INHALE 1 TO 2 PUFFS EVERY [address] [facility] albuterol 90 mcg/actuati on inhaler 07-26 00:00: 00 Yes INHALE 1 TO 2 PUFFS EVERY 4 TO 6 HOURS [facility] mcg/actuati on inhaler 07-26 00:00: 00 Yes INHALE 1 TO 2 PUFFS EVERY 4 TO 6 HOURS [facility] mcg/actuati on inhaler 07-26 00:00: 00 Yes INHALE 1 TO 2 PUFFS EVERY 4 TO 6 HOURS [facility] albut[facility]ol 90 mcg/actuati on inhaler 07-26 00:00: 00 Yes INHALE 1 TO 2 PUFFS EVERY 4 TO 6 HOURS [facility] albut[facility]ol 90 mcg/actuati on inhaler 07-26 00:00: 00 Yes INHALE 1 TO 2 PUFFS EVERY 4 TO 6 HOURS [facility] albuterol 90 mcg/actuati on inhaler 07-26 00:00: 00 Yes INHALE 1 TO 2 PUFFS EVERY 4 TO 6 HOURS [facility] albut[facility]ol 90 mcg/actuati on inhaler 07-26 00:00: 00 Yes INHALE 1 TO 2 PUFFS EVERY [address] [facility] diclofenac 75 mg EC tablet 07-16 00:00: 00 Yes 75mg Take 1 tablet by mouth 2 (two) times daily with meals. [facility] diclofenac 75 mg EC tablet 07-16 00:00: 00 08-11 00:00 :00 No 75mg Take 1 tablet by mouth 2 (two) times daily with meals. [facility] diclofenac 75 mg EC tablet 07-16 00:00: 00 08-11 00:00 :00 No 75mg Take 1 tablet by mouth 2 (two) times daily with meals. [facility] diclofenac 75 mg EC tablet 07-16 00:00: 00 08-11 00:00 :00 No 75mg Take 1 tablet by mouth 2 (two) times daily with meals. [facility] methylPREDN ISolone (MEDROL, JOAN,) 4 mg tablets 2016-06 00:00: 00 Yes 84mg Take 21 tablets by mouth SEE-INSTRU CTIONS. follow package directions [facility] methylPREDN ISolone (MEDROL, JOAN,) 4 mg tablets 2016-06 00:00: 00 08-11 00:00 :00 No 84mg Take 21 tablets by mouth SEE-INSTRU CTIONS. follow package directions [facility] methylPREDN ISolone (MEDROL, JOAN,) 4 mg tablets 2016-06 00:00: 00 08-11 00:00 :00 No 84mg Take 21 tablets by mouth SEE-INSTRU CTIONS. follow package directions [facility] methylPREDN ISolone (MEDROL, JOAN,) 4 mg tablets 2016-06 00:00: 00 08-11 00:00 :00 No 84mg Take 21 tablets by mouth SEE-INSTRU CTIONS. follow package directions [facility] acetaminoph en-codeine 300-30 mg tablet 2016-06 00:00: 00 Yes TAKE 1 TO 2 TABLETS EVERY 6 HOURS NEEDED FOR PAIN [facility] acetaminoph en-codeine 300-30 mg tablet 2016-06 00:00: 00 08-11 00:00 :00 No TAKE 1 TO 2 TABLETS EVERY 6 HOURS NEEDED FOR PAIN [facility] acetaminoph en-codeine 300-30 mg tablet 2016-06 00:00: 00 08-11 00:00 :00 No TAKE 1 TO 2 TABLETS EVERY 6 HOURS NEEDED FOR PAIN [facility] acetaminoph en-codeine 300-30 mg tablet 2016-06 00:00: 00 08-11 00:00 :00 No TAKE 1 TO 2 TABLETS EVERY 6 HOURS NEEDED FOR PAIN [facility] meloxicam 7.5 mg tablet 03-18 00:00: 00 Yes TAKE 1 TABLET EVERY DAY WITH FOOD [facility] meloxicam 7.5 mg tablet 03-18 00:00: 00 08-11 00:00 :00 No TAKE 1 TABLET EVERY DAY WITH FOOD [facility] meloxicam 7.5 mg tablet 03-18 00:00: 00 08-11 00:00 :00 No TAKE 1 TABLET EVERY DAY WITH FOOD [facility] meloxicam 7.5 mg tablet 03-18 00:00: 00 08-11 00:00 :00 No TAKE 1 TABLET EVERY DAY WITH FOOD [facility] Vital Signs Vital Name Observation Time Observation Value Comments S ource Systolic blood pressure 2020-09-01 14:12:00 138 mm[Hg] [facility] Diastolic blood pressure 2020-09-01 14:12:00 80 mm[Hg] [facility] Heart rate 2020-09-01 14:12:00 55 /min [facility] Body height 2020-09-01 14:12:00 165.1 cm [facility] Body weight 2020-09-01 14:12:00 60.782 kg [facility] BMI 2020-09-01 14:12:00 22.30 kg/m2 [facility] Systolic blood pressure 2020-08-29 14:07:00 126 mm[Hg] [facility] Diastolic blood pressure 2020-08-29 14:07:00 84 mm[Hg] [facility] Body height 2020-08-29 14:07:00 165.1 cm [facility] Body weight 2020-08-29 14:07:00 60.782 kg [facility] BMI 2020-08-29 14:07:00 22.30 kg/m2 [facility] Systolic blood pressure 2020-08-11 15:46:00 133 mm[Hg] [facility] Diastolic blood pressure 2020-08-11 15:46:00 84 mm[Hg] [facility] Heart rate 2020-08-11 15:46:00 81 /min [facility] Respiratory rate 2020-08-11 15:46:00 19 /min [facility] Body height 2020-08-11 15:46:00 165.1 cm [facility] Body weight 2020-08-11 15:46:00 60.782 kg [facility] BMI 2020-08-11 15:46:00 22.30 kg/m2 [facility] Oxygen saturation in Arterial blood by Pulse oximetry 2020-08-11 15:46:00 99 /min [facility] Procedures Procedure Date / Time Performed Performing Clinicia n Source DISCLOSURE AND CONSENT, MEDICAL AND SURGICAL PROCEDURES 2020-08-29 06:01:00 Doctor Unassigned, [place] [facility] EXTERNAL PROVIDER - ADC CARDIOLOGY 2020-08-21 06:01:00 Doctor Unassigned, [place] [facility] [place] ELECTROCARDIOGRAM, COMPLETE 2020-08-11 15:50:15 Mark Pagan [facility] CONSENT/REFUSAL FOR DIAGNOSIS AND TREATMENT 2020-08-11 14:58:15 Doctor Unassigned, [place] [facility] Encounters Start Date/Time End Date/Time Encounter Type Admission Type Attending [facility] Care Facility Care Department Encounter ID Source 2023-07-24 09:06:53 2023-07-24 09:06:53 Outpatient [facility] [id number] 2023-07-10 09:40:29 2023-07-10 09:40:29 Outpatient [facility] [id number] 2022-07-22 17:25:05 2022-07-22 17:25:05 Outpatient [facility] [id number] 2020-09-01 08:03:58 2020-09-01 09:03:58 Laboratory Only Pc, Adc Echo Room 1 - Mark Pagan [facility] [id number] [facility] 2020-09-01 08:00:00 2020-09-01 08:00:00 Outpatient R [facility] [id number] [facility] 2020-08-30 00:00:00 2020-08-30 00:00:00 Telephone Mark Pagan [facility] [id number] [facility] 2020-08-29 07:58:40 2020-08-29 08:57:34 Laboratory Only Pc, Adc Echo Room 1 - Mark Pagan [facility] [id number] [facility] 2020-08-29 08:00:00 2020-08-29 08:00:00 Outpatient R [facility] [id number] [facility] 2020-08-29 00:00:00 2020-08-29 00:00:00 Orders Only Doctor Unassigned, [place] [facility] [id number] [facility] 2020-08-28 08:00:00 2020-08-28 08:00:00 Outpatient R [facility] [id number] [facility] 2020-08-21 00:00:00 2020-08-21 00:00:00 Orders Only Doctor Unassigned, [place] [facility] [id number] [facility] 2020-08-11 08:58:45 2020-08-11 10:09:51 Office Visit Mark Pagan [facility] [id number] [facility] 2020-08-11 09:30:00 2020-08-11 09:30:00 Outpatient R MARK PAGAN [facility] [id number] [facility] 2020-08-11 00:00:00 2020-08-11 00:00:00 Orders Only Doctor Unassigned, [place] [facility] [id number] [facility]
[2023-07-27 01:31] LABS: Absolute Lymphocytes (CBC) 0.7 K/uL (0.7-4.9); Absolute Neutrophil 0.6 K/uL (1.8-8.0); Basophils % 0.6 % (0-1.3); Eosinophils % 0.5 % (0-4.4); Hematocrit 33.7 % (39.6-49.0); Hemoglobin 12.2 g/dL (13.6-17.9); Lymphocytes % 51.6 % (15.3-44.8); MCH 42.5 pg (27.0-35.0); MCHC 36.2 g/dL (32.0-36.0); MCV 117.3 fL (80-100); Monocytes % 1.7 % (3.3-12.3); Neutrophils % 45.6 % (41.7-73.7); Nucleated Red Blood Cells % 0.8 % (0-0); Platelets 200 thou/uL (152-406); RBC Red Blood Cell Count 2.88 M/uL (4.33-5.43); Red Cell Distribution Width 14.2 % (12.1-15.2)
[2023-07-27 01:45] LABS: Specific Gravity < 1.005 (1.005-1.030); Sqamous Epithelial None Seen /HPF (None Seen); Urine Bacteria <20 /HPF (<20); Urine Bilirubin NEGATIVE (Negative); Urine Blood Negative (Negative); Urine Clarity Clear (Clear); Urine Color Colorless (Yellow); Urine Culture Reflex Order NOT NEEDED; Urine Glucose NEGATIVE (Negative); Urine Ketones NEGATIVE (Negative); Urine Micro Reflex YN NO BILL MICROSCOPIC; Urine Nitrite NEGATIVE (Negative); Urine Protein NEGATIVE (Negative); Urine RBC <5 /HPF (None Seen); Urine Urobilinogen Normal (Normal); Urine WBC <5 /HPF (<5)
[2023-07-27 02:07] LABS: Barbiturates NEGATIVE (NEGATIVE); Benzodiazepines NEGATIVE (NEGATIVE); Cocaine NEGATIVE (NEGATIVE); METHAMPHETAM NEGATIVE (NEGATIVE); Methadone NEGATIVE (NEGATIVE); Opiates NEGATIVE (NEGATIVE); Phencyclidine NEGATIVE (NEGATIVE); THC Cannibis NEGATIVE (NEGATIVE)
[2023-07-27 02:16] LABS: Albumin 4.2 g/dL (3.4-5.0); Albumin/Globulin Ratio 1.2 (1.1-1.8); Anion Gap 12.5 mEq/L (5.0-15.0); Bilirubin Direct 0.1 mg/dL (0-0.2); Bilirubin Indirect, Calculated 0.3 mg/dL (0.2-0.8); Bilirubin Total 0.4 mg/dL (0.2-1.0); Globulin 3.5 g/dL (2.3-3.5); Magnesium 2.2 mg/dL (1.6-2.4); Potassium 3.5 mEq/L (3.5-5.1); Protein, Total 7.7 g/dL (6.4-8.2)
--- NOTE | 2023-07-27 03:00 | EDPHYS ---
Physician Documentation [facility] Name: Mir Pizarro Age: 48 yrs Sex: Male : 1975 Arrival Date: 07/26/2023 Time: 22:47 Bed 19 Private MD: ED Physician Ramon Silva HPI: 07/26 23:10 This 48 yrs old Male presents to ER via Ambulatory with complaints of High cp Blood Pressure. 23:10 Patient is a 48-year-old male who presents to the emergency department with concern for cp elevated blood pressure and anxiety. Patient reports a history of hypertension but is unsure what medications he is taken in the past. Patient reports she was recently here in the hospital but left AGAINST MEDICAL ADVICE. Patient complains of fatigue, headache. Patient denies chest pain, abdominal pain. Historical: - Allergies: 23:10 No Known Allergies; as6 - PMHx: 23:10 Hypertensive disorder; as6 - PSHx: 23:10 knee; as6 - Immunization history:: Adult Immunizations up to date. - Social history:: Smoking status: Patient denies any tobacco usage or history of. ROS: 23:15 Constitutional: Positive for fatigue, malaise, Negative for body aches, chills, fever, cp poor PO intake, 23:15 Cardiovascular: Negative for chest pain, edema, palpitations, cp 23:15 Eyes: Negative for injury, pain, redness, and discharge, cp 23:15 ENT: Negative for drainage from ear(s), ear pain, difficulty swallowing, difficulty handling secretions, 23:15 Respiratory: Negative for cough, shortness of breath, wheezing, 23:15 Abdomen/GI: Negative for abdominal pain, vomiting, diarrhea, constipation, 23:15 Back: Negative for pain at rest, pain with movement, cp 23:15 : Negative for urinary symptoms, 23:15 Skin: Negative for cellulitis, rash, 23:15 Neuro: Positive for headache, weakness, Negative for altered mental status, syncope, near syncope, 23:15 All other systems are negative, Exam: 23:20 Constitutional: The patient appears in no acute distress, alert, awake, cp non-diaphoretic, non-toxic, well developed, well nourished, 23:20 Head/Face: Normocephalic, atraumatic. cp 23:20 Eyes: Periorbital structures: appear normal, Pupils: equal, round, and reactive to light and accomodation, Extraocular movements: intact throughout, Conjunctiva: normal, no exudate, no injection, Sclera: no appreciated abnormality, Lids and lashes: appear normal, bilaterally, 23:20 ENT: External ear(s): are unremarkable, Nose: is normal, Mouth: Lips: moist, Oral mucosa: pink and intact, moist, Posterior pharynx: is normal, airway is patent, no erythema, no exudate, 23:20 Neck: ROM/movement: is normal, is supple, without pain, no range of motions limitations, 23:20 Chest/axilla: Inspection: normal, 23:20 Cardiovascular: Rate: normal, Rhythm: regular, Edema: is not appreciated, JVD: is not appreciated, 23:20 Respiratory: the patient does not display signs of respiratory distress, Respirations: normal, no use of accessory muscles, no retractions, labored breathing, is not present, Breath sounds: are clear throughout, no decreased breath sounds, no stridor, no wheezing, 23:20 Abdomen/GI: Inspection: abdomen appears normal, Palpation: abdomen is soft and non-tender, in all quadrants, 23:20 Back: pain, is absent, ROM is normal, 23:20 Skin: no rash present. 23:20 Neuro: Orientation: to person, place \T\ time. Mentation: is normal, Cerebellar function: is grossly normal, Motor: moves all fours, no focal deficits, Sensation: is normal, 23:27 ECG was reviewed by the Attending Physician. cp Vital Signs: 23:11 BP 159 / 104; Pulse 78; Resp 16 S; Temp 98.2; Pulse Ox 100% on R/A; Weight 58.97 kg as6 (R); Height 5 ft. 7 in. (R); Pain 0/10; 07/27 00:15 BP 154 / 96; Pulse 72; Resp 17 S; Pulse Ox 100% on R/A; ha1 01:00 BP 152 / 89; Pulse 71; Resp 17 S; Pulse Ox 100% on R/A; ha1 02:00 BP 146 / 91; Pulse 71; Resp 17 S; Pulse Ox 100% on R/A; ha1 03:00 BP 141 / 91; Pulse 70; Resp 16 S; Pulse Ox 100% on R/A; ha1 07/26 23:11 Body Mass Index 20.36 (58.97 kg, 170.18 cm) as6 07/26 23:11 Pain Scale: Adult as6 MDM: 07/26 23:04 Patient medically screened. [facility] 07/27 02:58 Data reviewed: vital signs, nurses notes, lab test result(s), EKG, radiologic studies, cp plain films. 02:58 Differential diagnosis: hypertensive crisis, Malignant HTN, CVA, intracerebral cp hemorrhage. Consideration of Admission/Observation Escalation of care including admission/observation considered. I considered the following discharge prescriptions or medication management in the emergency department Medications were administered in the Emergency Department. See MAR. Independent interpretation of the following test(s) in the Emergency Department EKG: See my EKG interpretation above. Counseling: I had a detailed discussion with the patient and/or guardian regarding the historical points, exam findings, and any diagnostic results supporting the discharge/admit diagnosis, the presence of at least one elevated blood pressure reading (>120/80) during this emergency department visit, lab results, radiology results, the need for outpatient follow up, a family practitioner, oncology, to return to the emergency department if symptoms worsen or persist or if there are any questions or concerns that arise at home. Response to treatment: the patient's symptoms have mildly improved after treatment, and as a result, I will discharge patient. 07/26 23:39 Order name: Basic Metabolic Panel; Complete Time: 02:48 cp 07/27 02:48 Interpretation: Normal except: GLUC 121; GFR 88. cp 07/26 23:39 Order name: CBC with Diff; Complete Time: 02:48 cp 07/27 02:49 Interpretation: Normal except: WBC 1.30; RBC 2.88; HGB 12.2; HCT 33.7; MCV 117.3; MCH cp 42.5; MCHC 36.2; MPV 7.0; LYM% 51.6; MN% 1.7; NEUT A 0.6; MNA 0.0. 07/26 23:39 Order name: LFT's; Complete Time: 02:48 cp 07/26 23:39 Order name: Magnesium; Complete Time: 02:48 cp 07/26 23:39 Order name: Troponin HS; Complete Time: 02:48 cp 07/26 23:39 Order name: UDS; Complete Time: 02:48 cp 07/26 23:39 Order name: Urinalysis W/Microscopic; Complete Time: 02:00 cp 07/27 02:00 Interpretation: Normal except: Urine SG < 1.005. cp 07/26 23:39 Order name: XRAY Chest (1 view) cp 07/26 23:39 Order name: CT Head Brain wo Cont cp 07/26 23:39 Order name: EKG; Complete Time: 23:40 cp 07/26 23:39 Order name: Cardiac monitoring; Complete Time: 01: cp 07/26 23:39 Order name: EKG - Nurse/Tech; Complete Time: : cp 07/26 23:39 Order name: IV Saline Lock; Complete Time: : cp 07/26 23:39 Order name: Labs collected and sent; Complete Time: : cp 07/26 23:39 Order name: O2 Per Protocol; Complete Time: : cp 07/26 23:39 Order name: O2 Sat Monitoring; Complete Time: : EC/27 23:27 Rate is 79 beats/min. Rhythm is regular. HI interval is normal. QRS interval is cp prolonged at 102 msec. QT interval is normal. T waves are Inverted in lead aVR. Interpreted by me. Reviewed by me. Administered Medications: 07/27 03:12 Not Given (Physician Discretion): mg IV at calculated rate once over 2 ha1 mins; For SBP greater than 140. Hold for HR less than 60, notify provider. Disposition Summary: 07/27/23 02:59 Discharge Ordered Notes: Location: Home cp Problem: an ongoing problem cp Symptoms: have improved cp Condition: Stable cp Diagnosis - Hypertensive heart disease without heart failure cp - Anemia, unspecified cp - Leukopenia cp - Lesion of Right Anterior Frontal Bone and Orbital Roof cp Followup: cp - With: Echo Rowland MD - When: 5 - 6 days - Reason: Recheck today's complaints Discharge Instructions: - Discharge Summary Sheet cp - Anemia cp - Hypertension, Adult cp - Leukopenia cp - Form - Blood Pressure Record Sheet cp - How to Take Your Blood Pressure cp Forms: - Medication Reconciliation Form cp - Thank You Letter cp - Antibiotic Education cp - Prescription Opioid Use cp - Patient Portal Instructions cp - Leadership Thank You Letter cp - Work release form ha1 Signatures: Dispatcher [employer] Ramon Jansen MD MD cha Page, Corey, PA PA cp Slawson, Ashby, RN RN as6 Liliam Cramer RN ha1 Corrections: (The following items were deleted from the chart) 07/28 01:57 07/26 23:15 Constitutional: Negative for body aches, chills, fever, poor PO intake, cp cp
--- NOTE | 2023-07-27 03:00 | ER ---
Nurse's Notes [facility] Name: Mir Pizarro Age: 48 yrs Sex: Male : 1975 Arrival Date: 07/26/2023 Time: 22:47 Bed 19 Private MD: Diagnosis: Hypertensive heart disease without heart failure;Anemia, unspecified;Leukopenia;Lesion of Right Anterior Frontal Bone and Orbital Roof Presentation: 07/26 23:12 Chief complaint: Patient states: pt is worried that his blood pressure is high. as6 Coronavirus screen: At this time, the client does not indicate any symptoms associated with coronavirus-19. Ebola Screen: No symptoms or risks identified at this time. Initial Sepsis Screen: Does the patient meet any 2 criteria? No. Patient's initial sepsis screen is negative. Does the patient have a suspected source of infection? No. Patient's initial sepsis screen is negative. Risk Assessment: Do you want to hurt yourself or someone else? Patient reports no desire to harm self or others. Onset of symptoms was July 26, 2023. 23:12 Acuity: QUOC 3 as6 23:12 Method Of Arrival: Ambulatory as6 Historical: - Allergies: 23:10 No Known Allergies; as6 - PMHx: 23:10 Hypertensive disorder; as6 - PSHx: 23:10 knee; as6 - Immunization history:: Adult Immunizations up to date. - Social history:: Smoking status: Patient denies any tobacco usage or history of. Screenin:37 [facility] ED Fall Risk Assessment (Adult) History of falling in the last 3 months, ha1 including since admission No falls in past 3 months (0 pts) Confusion or Disorientation No (0 pts) Intoxicated or Sedated No (0 pts) Impaired Gait No (0 pts) Mobility Assist Device Used No (0 pt) Altered Elimination No (0 pt) Score/Fall Risk Level 0 - 2 = Low Risk Oriented to surroundings, Maintained a safe environment, Hourly rounding (assess needs \T\ fall precautionary measures) done. Abuse screen: Denies threats or abuse. Denies injuries from another. Nutritional screening: No deficits noted. On. Tuberculosis screening: No symptoms or risk factors identified. Assessment: 23:04 General: Appears comfortable, Behavior is calm, cooperative. Pain: Denies pain. Neuro: ha1 Level of Consciousness is awake, alert, obeys commands, Oriented to person, place, time, situation. Cardiovascular: Capillary refill < 3 seconds Patient's skin is warm and dry. Cardiovascular: Reports palpitations. Respiratory: Airway is patent Respiratory effort is even, unlabored, Respiratory pattern is regular, symmetrical. GI: No signs and/or symptoms were reported involving the gastrointestinal system. Derm: Skin is pink, warm \T\ dry. Musculoskeletal: Circulation, motion, and sensation intact. Range of motion: intact in all extremities. Musculoskeletal: Reports toe infection previously. 07/27 00:00 Reassessment: Patient and/or family updated on plan of care and expected duration. Pain ha1 level reassessed. Patient is alert, oriented x 3, equal unlabored respirations, skin warm/dry/pink. Patient denies pain at this time. 01:00 Reassessment: Patient and/or family updated on plan of care and expected duration. Pain ha1 level reassessed. Patient is alert, oriented x 3, equal unlabored respirations, skin warm/dry/pink. 02:00 Reassessment: Patient and/or family updated on plan of care and expected duration. Pain ha1 level reassessed. Patient is alert, oriented x 3, equal unlabored respirations, skin warm/dry/pink. Patient denies pain at this time. Vital Signs: 07/26 23:11 BP 159 / 104; Pulse 78; Resp 16 S; Temp 98.2; Pulse Ox 100% on R/A; Weight 58.97 kg as6 (R); Height 5 ft. 7 in. (R); Pain 0/10; 07/27 00:15 BP 154 / 96; Pulse 72; Resp 17 S; Pulse Ox 100% on R/A; ha1 01:00 BP 152 / 89; Pulse 71; Resp 17 S; Pulse Ox 100% on R/A; ha1 02:00 BP 146 / 91; Pulse 71; Resp 17 S; Pulse Ox 100% on R/A; ha1 03:00 BP 141 / 91; Pulse 70; Resp 16 S; Pulse Ox 100% on R/A; ha1 07/26 23:11 Body Mass Index 20.36 (58.97 kg, 170.18 cm) as6 07/26 23:11 Pain Scale: Adult as6 ED Course: 07/26 22:50 Patient arrived in ED. rg4 23:02 Ramon Olmedo PA is PHCP. cp 23:02 Ramon Silva MD is Attending Physician. cp 23:04 Patient has correct armband on for positive identification. Placed in gown. Bed in low ha1 position. Call light in reach. Side rails up X 1. Adult w/ patient. 23:11 Arm band placed on. as6 23:12 Triage completed. as6 23:29 Liliam Cramer, RN is Primary Nurse. ha1 23:45 Inserted saline lock: 20 gauge in right antecubital area, using aseptic technique. ha1 Blood collected. 07/27 00:02 XRAY Chest (1 view) In Process Unspecified. EDMS 00:10 CT Head Brain wo Cont In Process Unspecified. EDMS 01:01 Basic Metabolic Panel Sent. ha1 01:01 CBC with Diff Sent. ha1 01:01 LFT's Sent. ha1 01:01 Magnesium Sent. ha1 01:01 Troponin HS Sent. ha1 01:01 Urinalysis W/Microscopic Sent. ha1 01:01 UDS Sent. ha1 02:57 Echo Rowland MD is Referral Physician. cp 02:58 Referral Physician role handed off by Echo Rowland MD cp 02:58 Echo Rowland MD is Referral Physician. cp 03:24 No provider procedures requiring assistance completed. IV discontinued, intact, ha1 bleeding controlled, No redness/swelling at site. Pressure dressing applied. 03:25 Provided Education on: need for follow up care with PCP. ha1 Administered Medications: 03:12 Not Given (Physician Discretion): [id number] mg IV at calculated rate once over 2 ha1 mins; For SBP greater than 140. Hold for HR less than 60, notify provider. Medication: 07/26 23:37 VIS not applicable for this client. ha1 Outcome: 07/27 02:59 Discharge ordered by . cp 03:24 Discharged to home via wheelchair, ha1 03:24 Condition: stable 03:24 Discharge instructions given to patient, family, Instructed on discharge instructions, follow up and referral plans. Demonstrated understanding of instructions, follow-up care, 03:25 Patient left the ED. ha1 Signatures: Dispatcher [employer] EDMS Ramon Olmedo, PA PA cp Ben, Cassie rg4 Kei Mcclure, RN RN as6 Liliam Cramer, RN RN ha1
[2023-07-27 04:52] VITALS: BP 141/91; TEMP 98.2; O2SAT 100
--- NOTE | 2023-07-28 10:15 | RAD REPORT ---
EXAM DESCRIPTION: CT - Head Brain Wo Cont - 07/27/2023 7:17 am CLINICAL HISTORY: Male, 48 years old, WEAKNESS COMPARISON: 07/24/2023 TECHNIQUE: CT acquisition of the head without contrast. Coronal and sagittal reformatted images prov ided. This exam was performed according to departmental dose-optimization program which includes auto mated exposure control, adjustment of the mA and/or kV according to patient size, and/or use of itera tive reconstruction technique. FINDINGS: No intracranial hemorrhage or extraaxial fluid collection. No mass effect or midline shift. Ventricles, cisterns, and sulci are normal in size and configuration. Brain parenchymal attenuation and drew-white matter differentiation are within normal limits. Redemonstrated lytic lesion of the right anterior frontal bone measuring 3.4 cm in craniocaudal axis with partial destruction of the inner and outer table, involvement of the right orbital roof, and sma ll extension into the extracranial soft tissues. The visualized paranasal sinuses and mastoid cells are clear. Orbits are unremarkable. IMPRESSION: 1. No acute intracranial findings. 2. Unchanged lytic right anterior frontal bone and orbital roof lesion. Differential considerations include primary bone tumor and metastatic disease, lymphoma/leukemia, infection other etiologies. Br ain MRI with and without contrast is recommended for further characterization. Electronically signed by: Eric Mackenzie MD 07/27/2023 12:27 AM MIXER MACHINE FEEDER Due to temporary technical issues with the PACS/Fluency reporting system, reports are being signed by the in house radiologist without review as a courtesy to ensure prompt reporting. The interpreting r adiologist is fully responsible for the content of the report.
--- NOTE | 2023-07-28 10:16 | RAD REPORT ---
EXAM DESCRIPTION: RAD - Chest Single View - 07/27/2023 12:00 am CLINICAL HISTORY: Male, 48 years old, high blood pressure TECHNIQUE: 1 view COMPARISON: 07/24/2023 (report only available at the time of dictation) FINDINGS: SUPPORT DEVICES: None. LUNGS/PLEURA: No consolidation, pleural effusion, or pneumothorax. HEART/MEDIASTINUM: Normal size and configuration. OTHER: No acute osseous findings. IMPRESSION: No acute cardiopulmonary findings. Electronically signed by: Eric Mackenzie MD 07/27/2023 12:12 AM MOLD REPAIRER Due to temporary technical issues with the PACS/Fluency reporting system, reports are being signed by the in house radiologist without review as a courtesy to ensure prompt reporting. The interpreting r adiologist is fully responsible for the content of the report.
--- NOTE | 2023-07-31 13:45 | EKG ---
Test Date: 2023-07-26 Test Time: 23:19:50 Blister Packing Machine Tender: CASE MEASUREMENT RESULTS: Intervals: Rate: 79 ME: 150 QRSD: 102 QT: 364 QTc: 417 [place]: P: 66 ME: 150 QRS: 75 T: 74 INTERPRETIVE STATEMENTS: Normal sinus rhythm Normal ECG Compared to ECG 07/24/2023 16:53:20 No significant changes Electronically Signed On 07-31-23 13:27:45 MANAGER SOCIAL by Toni Fernandez
== END 2023-07-27 03:25 | disposition home or self-care (01) ==
LOC: ER 22:47
DX: I11.9 Hypertensive heart disease without heart failure (principal); D64.9 Anemia, unspecified; D72.819 Decreased white blood cell count, unspecified; R07.9 Chest pain, unspecified; R51.9 Headache, unspecified; R53.1 Weakness
CPT/HCPCS: 36415; 70450; 71045; 93005; 99284